=== PATIENT | male | born 1945 | race Caucasian/White ===

== ENCOUNTER 2023-12-09 09:00 | Emergency (ER) | payer MEDICARE, OTHER, SELFPAY ==
[2023-12-09 09:02] VITALS: BP 158/81
--- NOTE | 2023-12-09 09:24 | ED.GENMED ---
History of Present Illness
General
Chief Complaint: Cold/Flu/URI Symptoms
Source: patient
Exam Limitations: none
Time Seen by Provider: 12/09/23 09:18
Travel History
Have you had any contact with someone who has COVID-19?: Unable to Answer
Do you have any symptoms of coronavirus? Fever > 100 degrees, chills, cough, shortness of breath, sore throat, loss of taste or smell, muscle aches, or headache?: Yes
Symptoms:: cough
History of Present Illness
History of Present Illness:
See MDM
Past History
Past History
ED Past Medical History: Asthma and Other (Kidney stone in 2009, chronic renal insufficiency, arrhythmia with AICD implant,)
ED Past Surgical History: Cardiac
Social History
Tobacco: Non-smoker
Alcohol: Occasional
Family History
Family History: CAD
Phy Exam
Physical Exam
Physical Exam:
See MDM
Course
Orders/Labs/Results
Orders:
Orders
12/09/23 09:09
COVID-19 Antigen Urgent
Source: Nasal Swab
Influenza A+B Rapid Molecular Urgent
PAMELA Source: Nasal Swab
Specimen Description:
12/09/23 09:23
Acetaminophen [Tylenol] 1,000 mg PO NOW STA
CR Chest - 2 Views Urgent
Comment:
Reason For Exam: fever and cough
12/09/23 09:25
Acetaminophen [Tylenol] 1,000 mg .ROUTE .STK-MED ONE
Vital Signs
Initial and Last Documented VS:
Initial Vital Signs
Temp Pulse Resp BP Pulse Ox
102.0 F H 73 16 158/81 97
12/09/23 09:02 12/09/23 09:02 12/09/23 09:02 12/09/23 09:02 12/09/23 09:02
Last Documented Vital Signs
Temp Pulse Resp BP Pulse Ox
102.0 F H 73 16 158/81 97
12/09/23 09:02 12/09/23 09:02 12/09/23 09:02 12/09/23 09:02 12/09/23 09:02
MDM/Problems Addressed
Differential Diagnosis Includes:
HPI and MDM Narrative:
78-year-old male presenting with cough and fever. This been ongoing for the past day or so. Patient recently returned from a cruise. He does have a history of well-controlled asthma and denies wheezing
Patient febrile on arrival. He is well-appearing nontoxic. Does have a dry cough. Will obtain COVID and flu testing and chest x-ray. Patient given Tylenol
Physical exam
General: Well appearing and non-toxic
HEENT: protecting airway
Neck: appears supple
CV: No evidence of cyanosis
Resp: No accessory muscle use. Lungs clear
Abd: Non-distended
Extremities: No deformities
Neuro: alert
Psych: Normal affect
Skin: Warm
Problems Addressed including Acute and Chronic Conditions affecting care:
1. Cough and fever
Acuity: acute
Prognosis: stable
Details: Will obtain COVID and flu testing. Will obtain chest x-ray
Updates
Patient found to be influenza positive. Chest x-ray clear. Discussed return precautions
Differential Diagnosis (but not limited to): Pneumonia, COVID, flu, viral syndrome
Testing considered: Blood work
Drug therapy (if applicable): OTC meds, please see d/c instruction regarding Rx drugs
Amount and/or Complexity of Data Reviewed
Clinical info obtained from: Patient
External data reviewed: N/A
Labs I independently reviewed (but not limited to): Influenza positive
Radiology: X-ray independently reviewed: Chest x-ray clear
Pulse Ox: not hypoxic
EKG independently reviewed: N/A
Tube Closing Machine Operator: N/A
Critical Care: N/A
Risk of Complication:
Social Determinants of health: Good social support
Discussed with other providers: N/A
Escalation of Care includes Admit/Obs: After being observed in the Emergency Department, pt stable for discharge.
Occasional wrong word or 'sound a like' substitutions may have occurred due to the inherent limitations of voice recognition software. Read the chart carefully and recognize, using context, where substitutions have occurred.
*Critical Care Note
Total Time (30-74mins, 75-104mins- exclusive of procedures): Not Applicable
ED Attending Note
-
Portions of this chart may have been created with voice recognition software.� Occasional wrong word or��sound alike� substitutions may have occurred due to the inherent limitations of voice recognition software.
Discharge Plan
Departure
Patient Disposition: Home (Routine Discharge)
Date of Disposition: 12/09/23
Time of Disposition: 09:48
Patient with high blood pressure during this ER visit?: Yes
Discharge Problem:
Influenza A
Instructions: Flu, BLOOD PRESSURE
Prescriptions:
No Action
Areds Preservsion
1 tab PO BID
ascorbic acid (vitamin C) [Vitamin C] 1,000 MG tablet
1,000 mg PO DAILY
atorvastatin 20 MG tablet
20 mg PO DAILY
amiodarone [Pacerone] 200 MG tablet
200 mg PO DAILY
metoprolol succinate 100 MG tablet extended release 24 hr
100 mg PO BID
allopurinol 100 MG tablet
200 mg PO BID
cholecalciferol (vitamin D3) [Vitamin D3] 400 UNITS tablet
400 units PO DAILY
finasteride 5 MG tablet
5 mg PO DAILY
omega 1-xxc-cdq-fish oil [Fish Oil] 1 EACH capsule
1 cap PO DAILY
Eliquis 2.5 MG tablet
2.5 mg PO BID
Hold Instructions: Resume on 02/06/22. Don't restart until blood in urine is resolved
Brio Inhaler
100 mg inhalation DAILY
Multivitamin Senior Mens
1 tab PO DAILY
Tumeric
1 cap PO DAILY
albuterol 90 mcg/actuation Aerosol
108 mcg INHALATION PRN PRN (Reason: SOB)
Bactrim
1 tab PO BID
phenazopyridine 200 mg tablet
200 mg PO TID PRN (Reason: urine burning) 3 Days Qty: 10 0RF
oxybutynin chloride 5 mg tablet
5 mg PO TID PRN (Reason: frequent urination) 30 Days Qty: 40 0RF
Activity Restrictions/Additional Instructions:
Please return for any worsening symptoms.
You may return at any time if you have further concerns.
Please follow up with your doctor at the first available appointment, preferably this week.
Thank you for choosing [facility].
Interventions
Interventions:
*Risk Screen - Suicide Last Done: 12/09/23 09:02
*ED COVID-19 Vaccine History Last Done: 12/09/23 09:02
ED- Pulmonary Assessment Last Done: 12/09/23 09:30
Discharge Date and Time
Print Language: HAITIAN
[2023-12-09] MEDS: TYLENOL 1000 MG PO (09:29)
[2023-12-09 09:30] LABS: COVID-19 Antigen Negative (Negative)
== END 2023-12-09 10:05 | disposition home or self-care (01) ==
LOC: EMR 09:00
PROVIDERS: Emergency Medicine; EMERGENCY PHYSICIAN Student in an Organized Health Care Education/Training Program; FAMILY PHYSICIAN Family Medicine
DX: J10.1 Influenza due to other identified influenza virus with other respiratory manifestations (principal); J45.909 Unspecified asthma, uncomplicated
CPT/HCPCS: 99283; 71046; 87502; 87811

== ENCOUNTER 2023-12-12 13:17 | Inpatient (IN) | payer MEDICARE, OTHER, SELFPAY ==
[2023-12-12] VITALS (8 sets, daily range): BP systolic 97–171; BP diastolic 51–74; BMI 28.2
[2023-12-12] MEDS: TYLENOL 1000 MG PO (10:55)
--- NOTE | 2023-12-12 11:04 | ED.GENMED ---
History of Present Illness
General
Chief Complaint: Breathing Problem
Source: patient and spouse
Exam Limitations: none
Time Seen by Provider: 12/12/23 10:51
Nursing documentation reviewed up to this point in time: agreed with
Travel History
Have you had any contact with someone who has COVID-19?: No
Do you have any symptoms of coronavirus? Fever > 100 degrees, chills, cough, shortness of breath, sore throat, loss of taste or smell, muscle aches, or headache?: Yes
Symptoms:: fever
History of Present Illness
History of Present Illness:
78-year-old male with a past medical history of hyperlipidemia, atrial fibrillation, AICD, BPH, asthma who presents to the emergency department for evaluation of worsening shortness of breath and cough in the setting of influenza. Patient reports
that he had cough and fever starting a few days ago; was seen in this emergency room and was diagnosed with influenza A. He was advised regarding supportive care with Tylenol and ensuring good p.o. hydration. Since then fevers have been better
controlled at home but he has noticed worsening shortness of breath and cough. He says shortness of breath is worse with exertion but is constant over the past few days. He says his cough is productive of clear sputum. He has not had any chest
pain. He has had some nausea and decreased appetite and some loose stools. No abdominal pain. He denies any other complaints.
Past History
Past History
ED Past Medical History: Asthma and Other (Kidney stone in 2010, chronic renal insufficiency, arrhythmia with AICD implant,)
ED Past Surgical History: Cardiac
Social History
Tobacco: Non-smoker
Alcohol: Occasional
Family History
Family History: CAD
Review of Systems
Review of Systems
All Other Systems: ROS reviewed and negative except as documented in HPI and ROS
Constitutional: Reports fever, fatigue and chills
EENT: Denies sore throat or runny nose
Respiratory: Reports cough and trouble breathing
Cardiac: Denies chest pain or palpitations
ABD/GI: Reports nausea, diarrhea and anorexia; Denies abdominal pain or vomiting
: Denies flank pain
Musculoskeletal: Denies neck pain or back pain
Neurological: Denies dizzy or headache
Phy Exam
Physical Exam
Physical Exam:
General: Awake, alert; no acute distress
Head: Normocephalic, atraumatic
Eyes: Conjunctiva normal, sclera anicteric
Throat: Airway intact, handling secretions
Neck: Trachea midline, supple without meningismus
Lungs: Patient is tachypneic, low normal pulse ox 91% on room air; frequent coughing; diffuse rhonchi throughout all lung trent
Heart: Regular rate and rhythm, no murmurs, gallops, or rubs
Abd: Soft, non distended, nontender
Neuro: Cranial nerves grossly intact, speech fluid
Skin: no rash
Extremities: No edema in extremities, equal pulses in all extremities
Scores
Heart Failure Risk
Heart Failure Risk Score: Not Applicable
Heart Score for Chest Pain Patients
STEMI patient?: Not applicable
Withdrawal Assessment of Alcohol
Withdrawal Assessment Completed?: Not applicable
Course
Orders/Labs/Results
Orders:
Orders
12/12/23 10:50
Acetaminophen [Tylenol] 1,000 mg .ROUTE .STK-MED ONE
12/12/23 10:51
Ibuprofen [Motrin] 600 mg .ROUTE .STK-MED ONE
12/12/23 10:53
Acetaminophen [Tylenol] 1,000 mg PO NOW STA
CR Chest - 2 Views Urgent
Comment:
Reason For Exam: cough, fever
12/12/23 10:59
Complete Blood Count/With Diff Urgent
Comprehensive Metabolic Panel Urgent
Lactate Level [Lactic Acid] Urgent
Blood Culture Q30M
PAMELA Source: Blood/Venous
Specimen Description:
Blood Culture Q30M
PAMELA Source: Blood/Venous
Specimen Description:
12/12/23 12:06
CefTRIAXone [Rocephin] 1,000 mg IV NOW STA
Doxycycline 100 mg IVPB NOW Doxycycline Hyclate [Vibramycin] 100 mg 0.9% Sodium Chloride 250 ml [Nss] 250 ml IV NOW
Abnormal Lab Results
12/12/23
10:59
WBC 2.9 L 10^3/uL
(4.8-10.8)
RBC 4.07 L 10^6/uL
(4.70-6.10)
MCV 96.6 H fL
(80.0-94.0)
MCH 34.4 H pg
(27.0-31.0)
Plt Count 94 L 10^3/uL
(130-400)
MPV 10.9 H fL
(7.4-10.4)
Absolute Lymphs (auto) 0.3 L 10^3/uL
(1.2-3.4)
Neutrophils % 78.1 H %
(42.2-75.2)
Lymphocytes % 9.4 L %
(20.5-51.1)
Monocytes % 11.5 H %
(1.7-9.3)
Sodium 134 L mmol/L
(135-145)
BUN 23 H mg/dl
(9-20)
Glucose 121 H mg/dl
(70-99)
Total Bilirubin 1.8 H mg/dl
(0.2-1.3)
AST 115 H U/L
(17-59)
ALT 109 H U/L
(0-50)
Alkaline Phosphatase 211 H U/L
(38-126)
Total Protein 6.0 L g/dl
(6.3-8.2)
12/12/23 10:59
12/12/23 10:59
Vital Signs
Initial and Last Documented VS:
Initial Vital Signs
Temp Pulse Resp BP Pulse Ox
39.6 C H 72 24 171/74 91
12/12/23 10:40 12/12/23 10:40 12/12/23 10:40 12/12/23 10:40 12/12/23 10:40
Last Documented Vital Signs
Temp Pulse Resp BP Pulse Ox
39.6 C H 72 24 123/66 93
12/12/23 10:40 12/12/23 11:00 12/12/23 10:40 12/12/23 10:57 12/12/23 11:00
MDM/Problems Addressed
Differential Diagnosis Includes:
Bronchitis, asthma exacerbation, pneumonia, viral syndrome
MDM/Problems Addressed:
78-year-old male with history as documented, recently diagnosed influenza presents with worsening shortness of breath and cough, fever. Febrile to 103.2 �F here. Tachypneic and low normal pulse ox 91% on room air. Hypertensive. Normal heart
rate. Physical exam as above�notably hacking cough with diffuse rhonchorous breath sounds. Suspect likely an acute viral bronchitis although pneumonia also consideration. Will plan to check labs including a CBC and CMP, send lactate and blood
cultures given multiple SIRS criteria and concern for lung infection. Will check chest x-ray. Will treat with Tylenol for fever. Will monitor closely reassess after the above. Consider steroids if no pneumonia on chest x-ray.
Labs reviewed: CBC shows leukopenia with a WBC of 2.9; CMP shows abnormal LFTs likely in the setting of influenza/viral infection. Chest x-ray shows right-sided pneumonia which is new�concern for sepsis related to pneumonia. Lactate is less than
2. Will plan to treat with antibiotics and admit for continued management. Case discussed with hospitalist for admission.
Chronic conditions affecting care:
Asthma
Acute Exacerbation and/or Progression of Chronic Illness:
Acutely hypertensive
Acute Exacerbation and/or Progression of Chronic Illness: HTN
*Radiology
Radiology exam reviewed: preliminary read by ED provider and radiology read reviewed
*Pulse Oximetry
Patient hypoxic: no
*Critical Care Note
Total Time (30-74mins, 75-104mins- exclusive of procedures): Not Applicable
Data Reviewed
Review of Other/Old Records Reveals: Labs and Records
Source: patient and records
Patient Management
Discussion with other providers: Hospitalist (Discussed with hospitalist)
Escalation/DeEscalation of care consider admission/obs:
Admission indicated
ED Attending Note
-
Portions of this chart may have been created with voice recognition software.� Occasional wrong word or��sound alike� substitutions may have occurred due to the inherent limitations of voice recognition software.
Discharge Plan
Departure
Patient Disposition: Admit
Date of Disposition: 12/12/23
Time of Disposition: 12:08
Admit to doctor: Ayala
Presentation/result/management discussed w/ accepting MD/DO: Hospitalist
Discharge Problem:
Pneumonia, Influenza A, Sepsis
Prescriptions:
No Action
Areds Preservsion
1 tab PO BID
ascorbic acid (vitamin C) [Vitamin C] 1,000 MG tablet
1,000 mg PO DAILY
atorvastatin 20 MG tablet
20 mg PO DAILY
amiodarone [Pacerone] 200 MG tablet
200 mg PO DAILY
metoprolol succinate 100 MG tablet extended release 24 hr
100 mg PO BID
allopurinol 100 MG tablet
200 mg PO BID
cholecalciferol (vitamin D3) [Vitamin D3] 400 UNITS tablet
400 units PO DAILY
finasteride 5 MG tablet
5 mg PO DAILY
omega 7-jzv-qzo-fish oil [Fish Oil] 1 EACH capsule
1 cap PO DAILY
Eliquis 2.5 MG tablet
2.5 mg PO BID
Hold Instructions: Resume on 02/06/22. Don't restart until blood in urine is resolved
Brio Inhaler
100 mg inhalation DAILY
Multivitamin Senior Mens
1 tab PO DAILY
Tumeric
1 cap PO DAILY
albuterol 90 mcg/actuation Aerosol
108 mcg INHALATION PRN PRN (Reason: SOB)
Bactrim
1 tab PO BID
phenazopyridine 200 mg tablet
200 mg PO TID PRN (Reason: urine burning) 3 Days Qty: 10 0RF
oxybutynin chloride 5 mg tablet
5 mg PO TID PRN (Reason: frequent urination) 30 Days Qty: 40 0RF
Referrals:
Heriberto Breen MD [Family Provider] -
Interventions
Interventions:
*Risk Screen - Suicide Last Done: 12/12/23 10:56
*General Assessment Last Done: 12/12/23 10:56
*Neglect/Abuse Screening Last Done: 12/12/23 10:56
*ED COVID-19 Vaccine History Last Done: 12/12/23 10:40
ED- Cardiac Assessment Last Done: 12/12/23 11:01
ED- Pulmonary Assessment Last Done: 12/12/23 10:56
Discharge Date and Time
Print Language: ITALIAN
[2023-12-12 11:11] LABS: % Basophils 0.7 % (0-2); % Immature Granulocytes 0.3 % (0-0.5); % Lymphocytes 9.4 % (20.5-51.1); % Monocytes 11.5 % (1.7-9.3); % Neutrophils 78.1 % (42.2-75.2); Absolute Lymphocytes 0.3 10^3/uL (1.2-3.4); Absolute Monocytes 0.3 10^3/uL (0.1-0.6); Absolute Neutrophils 2.2 10^3/uL (1.4-6.5); Hematocrit 39.3 % (39.0-52.0); Mean Corp Hgb Conc. 35.6 g/dL (33.0-37.0); Mean Corpuscular Hgb 34.4 pg (27.0-31.0); Mean Corpuscular Volume 96.6 fL (80.0-94.0); Mean Platelet Volume 10.9 fL (7.4-10.4); Nucleated Red Blood Cells % 0 % (-); Platelet Count 94 10^3/uL (130-400); Red Blood Cell Count 4.07 10^6/uL (4.70-6.10); Red Cell Dist. Width 13.6 % (11.5-14.5); White Blood Cell Count 2.9 10^3/uL (4.8-10.8)
[2023-12-12 11:24] LABS: Lactic Acid 1.7 mmol/L (0.7-2.0)
[2023-12-12 11:25] LABS: ALT (SGPT) 109 U/L (0-50); AST (SGOT) 115 U/L (17-59); Albumin 3.6 g/dl (3.5-5.0); Alkaline Phosphatase 211 U/L (38-126); Blood Urea Nitrogen 23 mg/dl (9-20); Calcium 8.5 mg/dl (8.4-10.2); Carbon Dioxide 22 mmol/L (22-30); Chloride 101 mmol/L (98-107); Glucose 121 mg/dl (70-99); Sodium 134 mmol/L (135-145); Total Bilirubin 1.8 mg/dl (0.2-1.3); eGFR 56.93
[2023-12-12] MEDS: ROCEPHIN 1000 MG IV (12:17)
[2023-12-12] MEDS: NSS 1000 IV ×2 (12:41→14:00)
[2023-12-12] MEDS: VIBRAMYCIN 260 MG IV (12:43)
--- NOTE | 2023-12-12 13:00 | HPS.HSE ---
Family Physician
-
Family Physician: Heriberto Breen
Chief Complaint
-
Cough, Shortness of Breath and Fever
History of Present Illness
This is a 78 year old male with past medical history of asthma, hypertension, and who presents with dyspnea, cough, wheezing, chills, and fevers since he came back from a cruise 6 days ago. He presented to the emergency department three days ago
and was diagnosed with influenza type A and discharge home from the emergency department. His symptoms continued to worsen with increasing shortness of breath, productive cough and persistent fever, prompting him to present to the emergency
department today. Patient states he has experienced mild improvement with over the counter Tylenol and use of his albuterol inhaler to help with his wheezing. Patient reports dyspnea is with only mild exertion. Patient reports cough is productive of
thick yellow sputum. He reports an episode of nausea after a meal yesterday but reports this has resolved. Patient denies abdominal pain or chest pain.
Medical History
Past Medical History
Past Medical History: Reports Other
Additional Past Medical History:
Cardiomyopathy
Paroxysmal Atrial Fibrillation
Ventricular Tachycardia
Essential Hypertension
Hyperlipidemia
CKD Stage IIIA
Asthma
BPH
Nephrolithiasis
AYO
Gout
DVT
Past Surgical History: Reports Other
Additional Past Surgical History:
TURP
Defibrillator
Social History
Tobacco: Non-smoker
Alcohol: Daily (One dirnk nightly)
Family History
Family History: Not pertinent
Allergies / Home Medications
Allergies reflects when Allergies were last updated in [facility].
Home Medications with original date entered in [facility]
Allergy/Medication List:
Allergies
Allergy/AdvReac Type Severity Reaction Status Date / Time
No Known Allergies Allergy Verified 02/02/22 12:51
Home Medications
amiodarone 200 mg tablet (Pacerone) 200 mg PO DAILY 01/10/22
ascorbic acid (vitamin C) 1,000 mg tablet (Vitamin C) 1,000 mg PO DAILY 01/10/22
atorvastatin 20 mg tablet 20 mg PO DAILY 01/10/22
cholecalciferol (vitamin D3) 10 mcg (400 unit) tablet (Vitamin D3) 400 units PO DAILY 01/10/22
metoprolol succinate 100 mg tablet,extended release 24 hr 50 mg PO DAILY 01/10/22
omega 5-nbh-pxy-fish oil 300 mg-1,000 mg capsule (Fish Oil) 1 cap PO DAILY 01/10/22
Lactobacillus rhamnosus GG 10 billion cell capsule (Culturelle) 1 cap PO DAILY 12/12/23
allopurinol 300 mg tablet 300 mg PO DAILY 12/12/23
apixaban 5 mg tablet (Eliquis) 5 mg PO BID 12/12/23
empagliflozin 10 mg tablet (Jardiance) 10 mg PO DAILY 12/12/23
fluticasone furoate 100 mcg-vilanterol 25 mcg/dose inhalation powder (Breo Ellipta) 1 inh inhalation R DAILY 12/12/23
glucosamine sulf dipot chlr,msm,chond 550 mg-C 30 mg-rudy 1 mg capsule (Glucosamine Chondroitin) 1 cap PO DAILY 12/12/23
therapeutic multivitamin 1 tab PO DAILY 12/12/23
turmeric 400 mg capsule 400 mg PO DAILY 12/12/23
vitamins A,C,U-zaza-mljsov 2,148 mcg-113 mg-45 mg-17.4 mg tablet (PreserVision AREDS) 1 tab PO DAILY 12/12/23
Review of Systems
-
A 12 point ROS was completed and negative except as noted: Yes
Constitutional: Reports Fever
Respiratory: Reports Cough and Trouble Breathing
Cardiac: Denies Chest Pain or Palpitations
Abdomen/GI: Reports Nausea; Denies Abdominal Pain, Vomiting or Diarrhea
Physical Exam
Vital Signs
Vital Signs
Temp Pulse Resp BP Pulse Ox
99.2 F 72 24 123/66 93
12/12/23 12:45 12/12/23 11:00 12/12/23 10:40 12/12/23 10:57 12/12/23 11:00
Physical Exam
General: Comfortable and Conversant
HEENT: Anicteric and Moist mucous membranes
Respiratory: Wheezes (Anteriorly) and Other (Coarse breath sounds throughout with frequent cough)
Cardiac: S1/S2 and Regular Rhythm
GI: Soft and Non Tender
Rectal: Deferred by Provider
Musculoskeletal: No Clubbing, No Cyanosis and No Edema
Skin: Warm and Dry
Neuro: Awake, Alert, Oriented and Nonfocal/grossly intact
Psych: Calm
Laboratory Results
-
12/12/23 10:59
12/12/23 10:59
Laboratory Results
Lactic Acid 1.7 mmol/L (0.7-2.0) 12/12/23 10:59
Total Bilirubin 1.8 mg/dl (0.2-1.3) H 12/12/23 10:59
AST 115 U/L (17-59) H 12/12/23 10:59
ALT 109 U/L (0-50) H 12/12/23 10:59
Alkaline Phosphatase 211 U/L (38-126) H 12/12/23 10:59
Data Reviewed
-
Lab Data: Labs Reviewed by me
Impression/Plan
-
Sepsis secondary to Pneumonia possible viral secondary to Influenza Type A +/- superimposed bacterial compoenent
-Continue Rocephin and Doxycycline
-Start Tamiflu
-Check Sputum Culture
-Check urine strep and legionella antigen
-Await blood cultures
Acute Asthma Exacerbation
-Continue Pulmicort Neb in place of Breo
-Continue Albuterol Neb QID and PRN
Elevated LFTs likely related to Influenza A
-Hold statin
-Continue to trend
Paroxysmal Atrial Fibrillation
-Continue Eliquis for anticoagulation
-Continue amiodarone for rate/rhythm control
-Hold Metoprolol due to mild hypotension in ED
CKD Stage IIIA
-Creatinine at baseline
-Continue Jardiance
Hyperlipidemia
-Hold statin due to elevated LFTs
BPH s/p TURP
-Continue finasteride
Gout
-Continue allopurinol
Hx Ventricular Tachycardia s/p Defibrillator
Hx DVT
DVT proph: Eliquis
Code Status: Full Code
--- NOTE | 2023-12-12 13:47 | W.PN.UPDATE ---
Update Note
Progress Note Update
I saw and examined the patient.
The CEMENT DESPATCH OPERATOR or PA's note was reviewed and I agree with the note.
Comment: 78-year-old male presents with a chief complaint of shortness of breath and cough.
101/62, 60, 14, 99.2 �F, 96% RA
NAD, awake and alert
RRR, normal S1/S2
B/L wheezes/rhonchi
CN2-12 intact
CXR:
1. Findings suggestive of multifocal pneumonia within the right middle and right lower lobes, new compared to recent prior chest x-ray.
2. No significant pleural effusion on either side.
Lab Results
12/12/23
10:59
WBC 2.9 L
RBC 4.07 L
Hgb 14.0
Hct 39.3
MCV 96.6 H
MCH 34.4 H
MCHC 35.6
RDW 13.6
Plt Count 94 L
MPV 10.9 H
Abs Immat Gran (auto) 0.0
Absolute Neuts (auto) 2.2
Absolute Lymphs (auto) 0.3 L
Absolute Monos (auto) 0.3
Absolute Eos (auto) 0.0
Absolute Basos (auto) 0.0
CBC Comment
Immature Gran % 0.3
Neutrophils % 78.1 H
Lymphocytes % 9.4 L
Monocytes % 11.5 H
Eosinophils % 0.0
Basophils % 0.7
Nucleated RBC % 0
Sodium 134 L
Potassium 4.0
Chloride 101
Carbon Dioxide 22
BUN 23 H
Creatinine 1.3
eGFR 56.93
Glucose 121 H
Lactic Acid 1.7
Calcium 8.5
Total Bilirubin 1.8 H
AST 115 H
ALT 109 H
Alkaline Phosphatase 211 H
Total Protein 6.0 L
Albumin 3.6
Sepsis due to acute R-sided multifocal PNA:
-recent influenza POS 12/09/23, was not given Tamiflu at that time
-cont with Rocephin/Doxy
-start Tamiflu
-check procal
-IVFs
-elevated LFTs likely due to sepsis, trend
[2023-12-12] MEDS: TAMIFLU 75 MG PO (14:12)
[2023-12-12 14:19] LABS: Procalcitonin 1.49 ng/ml (0.0-0.25)
[2023-12-12] MEDS: VENTOLIN NEBULES 2.5 MG INH ×2 (17:26→19:51)
[2023-12-12] MEDS: PULMICORT 0.5 MG INH (19:50)
[2023-12-12] MEDS: VIBRAMYCIN 100 MG PO (20:27)
[2023-12-12] MEDS: TYLENOL 650 MG PO (20:27)
[2023-12-12] MEDS: ELIQUIS 5 MG PO (20:27)
[2023-12-13] MEDS: NSS 1000 IV ×3 (00:26→22:54)
[2023-12-13] MEDS: TYLENOL 650 MG PO (00:27)
[2023-12-13] MEDS: ANESTHETIC LOZENGE 1 LOZENGE PO ×4 (00:27→20:13)
[2023-12-13 03:38] VITALS: BP 107/59
[2023-12-13 05:31] VITALS: BMI 28.1
[2023-12-13 07:10] VITALS: BP 112/61
[2023-12-13] MEDS: PULMICORT 0.5 MG INH ×2 (07:11→20:14)
[2023-12-13] MEDS: VENTOLIN NEBULES 2.5 MG INH ×4 (07:11→20:14)
--- NOTE | 2023-12-13 08:05 | W.PN.HOSP.TC ---
Today's Communication/Plan
-
see bold
Assessment / Plan
Assessment / Plan
Gen: NAD, AAOx3.
Eyes: EOMI, PERRLA, no scleral icterus.
Neck: supple.
CV: RRR, +S1/S2, no m/r/g.
Resp: Bilateral wheezes and rhonchi.
Abd: +BS, soft, NT, ND
Skin: No rashes.
Neuro: CN 2-12 intact, non-focal.
Psych: Normal mood and affect.
CXR:
1. Findings suggestive of multifocal pneumonia within the right middle and right lower lobes, new compared to recent prior chest x-ray.
2. No significant pleural effusion on either side.
Sepsis and acute asthma exacerbation due to acute R-sided multifocal PNA:
-recent influenza POS 12/09/23, was not given Tamiflu at that time
-procal 1.49
-cont with Rocephin/Doxy/Tamiflu
-decadron 4mg IV x 1 now, c/s pulm
-cont IVFs
-elevated LFTs likely due to sepsis, improving
-DEEPA, POA, due to sepsis, resolved with IVFs
Other problems:
Paroxysmal Atrial Fibrillation: Cont Eliquis/Amio. BB on hold.
CKD3a
Hyperlipidemia: Holding statin due to elevated LFTs
BPH s/p TURP: Continue finasteride
Gout: Continue allopurinol
h/o Ventricular Tachycardia s/p Defibrillator
h/o DVT
FULL/Eliquis
Anticipated Discharge: 24 - 48 hours
Subjective/Interval History
-
Date of Service: December 13, 2023
Still with shortness of breath. Cough is improving.
Objective Data
-
Labs:
Laboratory Results
12/13/23
06:00
WBC Pending
Hgb Pending
Hct Pending
Plt Count Pending
Sodium Pending
Potassium Pending
Chloride Pending
Carbon Dioxide Pending
BUN Pending
Creatinine Pending
Glucose Pending
Calcium Pending
Total Bilirubin Pending
AST Pending
ALT Pending
Alkaline Phosphatase Pending
Vital Signs:
Vital Signs
Temp Pulse Resp BP Pulse Ox
98.2 F 84 22 107/59 96
12/13/23 03:38 12/13/23 07:15 12/13/23 07:15 12/13/23 03:38 12/13/23 07:15
I&O
12/12/23 12/13/23 12/14/23
06:59 06:59 06:59
Intake Total 1919
Balance 1919
[2023-12-13] MEDS: TAMIFLU 30 MG PO (08:32)
[2023-12-13] MEDS: PACERONE 200 MG PO (08:32)
[2023-12-13] MEDS: VIBRAMYCIN 100 MG PO ×2 (08:32→20:13)
[2023-12-13] MEDS: ELIQUIS 5 MG PO ×2 (08:33→20:12)
[2023-12-13] MEDS: ZYLOPRIM 300 MG PO (08:34)
[2023-12-13] MEDS: VISBIOME 1 CAP PO (08:34)
[2023-12-13] MEDS: JARDIANCE 10 MG PO (08:34)
[2023-12-13 09:24] LABS: Hematocrit 37.1 % (39.0-52.0); Hemoglobin 12.6 g/dL (13.0-18.0); Mean Corpuscular Hgb 34.1 pg (27.0-31.0); Mean Corpuscular Volume 100.5 fL (80.0-94.0); Mean Platelet Volume 11.4 fL (7.4-10.4); Platelet Count 80 10^3/uL (130-400); Red Blood Cell Count 3.69 10^6/uL (4.70-6.10); Red Cell Dist. Width 13.8 % (11.5-14.5); White Blood Cell Count 4.9 10^3/uL (4.8-10.8)
[2023-12-13 10:31] LABS: ALT (SGPT) 80 U/L (0-50); AST (SGOT) 83 U/L (17-59); Alkaline Phosphatase 194 U/L (38-126); Blood Urea Nitrogen 17 mg/dl (9-20); Calcium 8.1 mg/dl (8.4-10.2); Carbon Dioxide 22 mmol/L (22-30); Chloride 107 mmol/L (98-107); Estimated Creatinine Clearance 70 ml/min; Glucose 88 mg/dl (70-99); Magnesium 2.2 mg/dl (1.6-2.3); Potassium 3.5 mmol/L (3.5-5.1); Sodium 138 mmol/L (135-145); Total Bilirubin 1.5 mg/dl (0.2-1.3); Total Protein 5.4 g/dl (6.3-8.2); eGFR > 60.00
--- NOTE | 2023-12-13 10:38 | CON.PUL ---
Consultation
Consultation Request
Date/Time Consultation Requested: 12/13/2023-10:45 AM
Date/Time Consultation Performed: 12/13/2023-11:30 AM
Requesting Provider: Dr. Lozano
Performing Provider: Dr. Dai
Reason for Consultation: Asthma exacerbation
Medical History
-
Chief Complaint: Shortness of breath
History of Present Illness:
78-year-old male with a history of asthma, hypertension who presented with dyspnea, coughing, wheezing fevers and chills and pulmonary was consulted for asthma exacerbation 12/13/2023.He states that he was originally diagnosed with a bronchitis
continued to get worse with increasing shortness of breath, chest congestion, wheezing, productive cough and dyspnea on exertion. He feels improved but still has some chest congestion, wheezing and shortness of breath with exertion. He reports
obtaining a CPAP in [place] and using it until this respiratory tract infection. He reports having compliance check that was appropriate. He reports his AHI is less than 3. On most nights.
Past Medical History
Past Medical History: None (Hypertension. Hyperlipidemia. Asthma. AYO. PAF. Cardiomyopathy. Ventricular tachycardia. Chronic kidney disease stage IIIa. BPH. Nephrolithiasis. Gout. History of DVT. TURP. Defibrillator.)
Social History
Tobacco: Non-smoker
Alcohol: Daily (1 drink)
Drug: None
Living: With Family
Occupational Exposures: No known asbestos exposure
Environmental Exposures: No known tuberculosis exposure
Family History
Family History: Reviewed & Not Pertinent and Other (Father-cirrhosis due to alcohol, mother-diabetes and CAD)
Allergies / Home Medications
Allergies
Allergy/AdvReac Type Severity Reaction Status Date / Time
No Known Allergies Allergy Verified 02/02/22 12:51
Home Medications
�Medication �Instructions �Recorded �Confirmed �Last Taken �Type
amiodarone 200 mg tablet (Pacerone) 200 mg PO DAILY 01/10/22 12/12/23 12/11/23 History
ascorbic acid (vitamin C) 1,000 mg 1,000 mg PO DAILY 01/10/22 12/12/23 12/11/23 History
tablet (Vitamin C)
atorvastatin 20 mg tablet 20 mg PO DAILY 01/10/22 12/12/23 12/11/23 History
cholecalciferol (vitamin D3) 10 400 units PO DAILY 01/10/22 12/12/23 12/11/23 History
mcg (400 unit) tablet (Vitamin D3)
metoprolol succinate 100 mg 50 mg PO DAILY 01/10/22 12/12/23 12/11/23 History
tablet,extended release 24 hr
omega 3-hrs-fqt-fish oil 300 1 cap PO DAILY 01/10/22 12/12/23 12/11/23 History
mg-1,000 mg capsule (Fish Oil)
Lactobacillus rhamnosus GG 10 1 cap PO DAILY 12/12/23 12/12/23 12/11/23 History
billion cell capsule (Culturelle)
allopurinol 300 mg tablet 300 mg PO DAILY 12/12/23 12/12/23 12/11/23 History
apixaban 5 mg tablet (Eliquis) 5 mg PO BID 12/12/23 12/12/23 12/11/23 History
empagliflozin 10 mg tablet 10 mg PO DAILY 12/12/23 12/12/23 12/11/23 History
(Jardiance)
fluticasone furoate 100 1 inh inhalation R DAILY 12/12/23 12/12/23 12/11/23 History
mcg-vilanterol 25 mcg/dose
inhalation powder (Breo Ellipta)
glucosamine sulf dipot 1 cap PO DAILY 12/12/23 12/12/23 12/11/23 History
chlr,msm,chond 550 mg-C 30 mg-rudy
1 mg capsule (Glucosamine
Chondroitin)
therapeutic multivitamin 1 tab PO DAILY 12/12/23 12/12/23 12/11/23 History
turmeric 400 mg capsule 400 mg PO DAILY 12/12/23 12/12/23 12/11/23 History
vitamins A,C,O-kkyn-varpoj 2,148 1 tab PO DAILY 12/12/23 12/12/23 12/11/23 History
mcg-113 mg-45 mg-17.4 mg tablet
(PreserVision AREDS)
Review of Systems
-
Unable to Obtain full review of systems at this time due to: Other (Per HPI)
Vitals / Labs / Diagnostic Testing
Vital Signs
Temp Pulse Resp BP Pulse Ox
97.1 F 61 22 112/61 96
12/13/23 07:10 12/13/23 08:32 12/13/23 07:15 12/13/23 08:32 12/13/23 07:15
Lab Data
12/13/23 09:00
12/13/23 09:00
Microbiology
12/12/23 14:13 Sputum Gram Stain - Preliminary
Diagnostic Testing:
Physical Exam
-
Exam:
Well-nourished and well-developed in no apparent distress
HEENT-atraumatic, normocephalic
Neck-supple, no JVD, no bruit
Heart-regular rate and rhythm-no murmurs, rubs or gallops
Chest with diminished breath sounds, prolonged expiratory time and expiratory wheezes
Abdomen-soft, nontender, nondistended, no hepatosplenomegaly
Extremities-no cyanosis, clubbing, edema and good peripheral pulses
Integument-intact, no rashes, lesions or ecchymosis
Neurology-alert and oriented, nonfocal motor and sensory exam
Assessment
-
78-year-old male with a history of asthma, hypertension who presented with dyspnea, coughing, wheezing fevers and chills and pulmonary was consulted for asthma exacerbation 12/13/2023.
Asthma-mild intermittent now with acute exacerbation
Pneumonia-multifocal community-acquired
Influenza-+12/09/23
Elevated liver functions
Elevated procalcitonin 1.49
Ganwki-gsowhbloiw-lqwpitfkhu 12.6
Leukopenia-WBC 2.9
Conditions present prior to admission:
Hypertension.
Hyperlipidemia.
Asthma-mild intermittent maintained on Breo 100 and albuterol as needed
AYO-maintained on oral appliance.
PAF.
Chronic amiodarone 200 mg daily
Cardiomyopathy.
Ventricular tachycardia.
Chronic kidney disease stage IIIa.
BPH.
Nephrolithiasis.
Gout.
History of DVT.
Cataract
TURP.
Defibrillator-2012 and 2020
Left knee arthroscopy 1979
Bilateral cataract surgery with lens implants
Plan
Respiratory decompensation due to asthma exacerbation and underlying multifocal pneumonia and influenza
Supplemental oxygen
Mucolytic's
Decadron initiate
Nebulizers-currently on albuterol and budesonide
Patient is on Breo 100 as an outpatient
Incentive spirometry
Flutter
Vest therapy if needed
Check cultures
Influenza a positive-12/09/23
Tamiflu
Empiric antibiotics-doxycycline and ceftriaxone initiated
Follow radiographically
Monitor leukopenia
Follow hemoglobin
Transfuse as needed
Follow-up liver functions
DVT prophylaxis-on Eliquis
Nutrition
Early mobilization
He was wearing an oral device and multiple sleep studies showed it was ineffective for his obstructive sleep apnea-he went to [place] to see a sleep specialist and obtained a CPAP machine that he was using and reportedly had a compliance check that
was appropriate. He has an tristan on his phone and reports and AHI usually less than 3.
Patient followed by pulmonary/sleep specialist as an outpatient-saw Aminta Hamlin NP 05/14/2023 and was to see patient again 05/15/2024-originally saw Dr. Rosalva Raymond 12/04/2022-will ask for 2 weeks follow-up after discharge
Diagnostic data:
Chest x-ray 12/09/2023-NAD
Chest x-ray 12/12/2023-multifocal pneumonia right middle lobe and right lower lobe
PSG 2011-AHI 14, desaturation katrina 83%
Split study with mandibular advancement device 08/2021-baseline AHI 29 and with device AHI 24 with desaturation katrina 88%
HST with dental device 12/2022-AHI-24 desaturation katrina 74%
HST with new oral device 04/2023-AHI-36, desaturation katrina 74%, 53 minutes spent less than 88% saturation
Data Reviewed
-
PFT: Report reviewed by me
EKG: Report reviewed by me
Radiology: Image personally visualized and interpreted and Report reviewed by me
Medical Tests (Nuc Med, Echo etc): Report reviewed by me
Labs: Labs reviewed by me
Old Records: Reviewed
Total Time Spent with Patient (in minutes): 65
[2023-12-13 11:00] VITALS: BP 118/54
[2023-12-13] MEDS: DECADRON 4 MG IV ×2 (12:36→17:24)
[2023-12-13] MEDS: ROCEPHIN 1000 MG IV (12:36)
[2023-12-13] MEDS: STERILE WATER FOR INJECTION 10 ML IV (12:36)
--- NOTE | 2023-12-13 14:06 | CM ---
Medical records reviewed. Patient lives with his significant other in a 2 story home, [employer] was independent, drove, no DME or in-home services. Patient has defibrillator since 2013. Pharmacy is [facility] in [place], PCP is Dr. Louis
Blore. Anticipate no needs at discharge.
[2023-12-13 15:10] VITALS: BP 122/66
[2023-12-13] MEDS: NSS IV (17:18)
[2023-12-13 19:19] VITALS: BP 127/60
[2023-12-13] MEDS: TAMIFLU 75 MG PO (20:13)
[2023-12-13 23:07] VITALS: BP 130/73
[2023-12-13 23:17] LABS: Glucose - Point of Care 135 mg/dl (70-99)
[2023-12-13] MEDS: REFRESH EYE DROPS (PF) 1 DROPS OPHTH (23:35)
[2023-12-13] MEDS: ROBITUSSIN DM 10 ML PO (23:35)
--- NOTE | 2023-12-13 23:45 | PTCARENOTE ---
Patient c/o seeing 'white spots' when he closes his eyes; pt states that it started today and he is concerned that it is a side effect of a medication; Lionel SAGASTUME notified; orders obtained for Refresh eye drops PRN; See MAR.
[2023-12-14] MEDS: DECADRON 4 MG IV ×3 (02:27→17:31)
[2023-12-14 03:20] VITALS: BP 149/88
[2023-12-14 06:00] VITALS: BMI 28.2
[2023-12-14] MEDS: ROBITUSSIN DM 10 ML PO ×2 (06:21→17:32)
[2023-12-14] MEDS: ANESTHETIC LOZENGE 1 LOZENGE PO ×2 (06:21→19:50)
[2023-12-14 06:27] LABS: Hematocrit 34.9 % (39.0-52.0); Hemoglobin 12.3 g/dL (13.0-18.0); Mean Corp Hgb Conc. 35.2 g/dL (33.0-37.0); Mean Corpuscular Hgb 34.1 pg (27.0-31.0); Mean Corpuscular Volume 96.7 fL (80.0-94.0); Mean Platelet Volume 11.8 fL (7.4-10.4); Platelet Count 96 10^3/uL (130-400); Red Blood Cell Count 3.61 10^6/uL (4.70-6.10); Red Cell Dist. Width 13.7 % (11.5-14.5); White Blood Cell Count 3.3 10^3/uL (4.8-10.8)
[2023-12-14 06:53] LABS: ALT (SGPT) 93 U/L (0-50); AST (SGOT) 107 U/L (17-59); Albumin 2.9 g/dl (3.5-5.0); Alkaline Phosphatase 241 U/L (38-126); Blood Urea Nitrogen 19 mg/dl (9-20); Calcium 8.5 mg/dl (8.4-10.2); Carbon Dioxide 17 mmol/L (22-30); Chloride 112 mmol/L (98-107); Estimated Creatinine Clearance 70 ml/min; Glucose 129 mg/dl (70-99); Potassium 3.9 mmol/L (3.5-5.1); Sodium 138 mmol/L (135-145); Total Bilirubin 1.2 mg/dl (0.2-1.3); Total Protein 5.3 g/dl (6.3-8.2); eGFR > 60.00
[2023-12-14 07:00] VITALS: BP 127/64
[2023-12-14] MEDS: PULMICORT 0.5 MG INH ×2 (07:14→17:48)
[2023-12-14] MEDS: VENTOLIN NEBULES 2.5 MG INH ×4 (07:14→17:48)
--- NOTE | 2023-12-14 08:11 | W.PN.HOSP.TC ---
Today's Communication/Plan
-
see bold
Assessment / Plan
Assessment / Plan
Gen: remains NAD, AAOx3.
Eyes: EOMI, PERRLA, no scleral icterus.
Neck: supple.
CV: remains RRR, +S1/S2, no m/r/g.
Resp: minimal bilateral wheezes and rhonchi (greatly improved from yesterday).
Abd: +BS, soft, NT, ND
Skin: No rashes.
Neuro: CN 2-12 intact, non-focal.
Psych: Normal mood and affect.
CXR:
1. Findings suggestive of multifocal pneumonia within the right middle and right lower lobes, new compared to recent prior chest x-ray.
2. No significant pleural effusion on either side.
Sepsis and acute asthma exacerbation due to acute R-sided multifocal PNA:
-recent influenza POS 12/09/23, was not given Tamiflu at that time
-procal 1.49
-cont with Rocephin/Doxy/Tamiflu/Decadron
-pulm following
-cont IVFs (but change to NaHCO3 with non-AG met acidosis)
-elevated LFTs likely due to sepsis. Bilirubin now normal. Transaminases remain minimally elevated.
-DEEPA, POA, due to sepsis, resolved with IVFs
Other problems:
Thrombocytopenia, likely due to infection
Paroxysmal Atrial Fibrillation: Cont Eliquis/Amio. Restart BB.
CKD3a
Hyperlipidemia: Holding statin due to elevated LFTs
BPH s/p TURP: Continue finasteride
Gout: Continue allopurinol
h/o Ventricular Tachycardia s/p Defibrillator
h/o DVT
Discussed with Dr. Dai.
FULL/Eliquis
Anticipated Discharge: Within 24 hours
Subjective/Interval History
-
Date of Service: December 14, 2023
Pt states he feels significantly better.
Objective Data
-
Labs:
Laboratory Results
12/14/23
05:29
WBC 3.3 L
Hgb 12.3 L
Hct 34.9 L
Plt Count 96 L
Sodium 138
Potassium 3.9
Chloride 112 H
Carbon Dioxide 17 L
BUN 19
Creatinine 0.9
Glucose 129 H
Calcium 8.5
Total Bilirubin 1.2
AST 107 H
ALT 93 H
Alkaline Phosphatase 241 H
Vital Signs:
Vital Signs
Temp Pulse Resp BP Pulse Ox
97.7 F 75 14 149/88 96
12/14/23 03:20 12/14/23 07:18 12/14/23 07:18 12/14/23 03:20 12/14/23 07:18
I&O
12/13/23 12/14/23 12/15/23
06:59 06:59 06:59
Intake Total 1919
Balance 1919
[2023-12-14] MEDS: PACERONE 200 MG PO (09:29)
[2023-12-14] MEDS: ZYLOPRIM 300 MG PO (09:30)
[2023-12-14] MEDS: VISBIOME 1 CAP PO (09:30)
[2023-12-14] MEDS: JARDIANCE 10 MG PO (09:30)
[2023-12-14] MEDS: ELIQUIS 5 MG PO ×2 (09:30→19:50)
[2023-12-14] MEDS: SODIUM BICARBONATE 1075 MEQ IV (09:31)
[2023-12-14] MEDS: TAMIFLU 75 MG PO ×2 (09:31→19:50)
[2023-12-14] MEDS: VIBRAMYCIN 100 MG PO ×2 (09:31→19:50)
[2023-12-14] MEDS: TOPROL XL 50 MG PO (09:34)
--- NOTE | 2023-12-14 09:54 | W.PN.PUL.V3 ---
Today's Communication / Plan
-
.
Wean oxygen.
Overall improved.
Change Decadron to prednisone in the next 24 hours.
Continue antibiotics and Tamiflu
Assessment
-
78-year-old male with a history of asthma, hypertension who presented with dyspnea, coughing, wheezing fevers and chills and pulmonary was consulted for asthma exacerbation 12/13/2023.
Asthma-mild intermittent now with acute exacerbation
Pneumonia-multifocal community-acquired
Influenza-+12/09/23
Elevated liver functions
Elevated procalcitonin 1.49
Coabnf-kvbjzgugbn-sypawpbdlj 12.6
Leukopenia-WBC 2.9
Non-gap metabolic acidosis
Conditions present prior to admission:
Hypertension.
Hyperlipidemia.
Asthma-mild intermittent maintained on Breo 100 and albuterol as needed
AYO-maintained on oral appliance.
PAF.
Chronic amiodarone 200 mg daily
Cardiomyopathy.
Ventricular tachycardia.
Chronic kidney disease stage IIIa.
BPH.
Nephrolithiasis.
Gout.
History of DVT.
Cataract
TURP.
Defibrillator-2012 and 2020
Left knee arthroscopy 1980
Bilateral cataract surgery with lens implants
Plan
.
Once again, the patient's respiratory decompensation due to asthma exacerbation and underlying multifocal pneumonia and influenza
Supplemental oxygen-attempt to wean to room air prior to discharge
Mucolytic's
Decadron initiate-Change to prednisone tomorrow
Nebulizers-currently on albuterol and budesonide
Patient is on Breo 100 as an outpatient
Incentive spirometry
Flutter
Vest therapy if needed
Check cultures
Influenza a positive-12/09/23
Tamiflu
Empiric antibiotics-doxycycline and ceftriaxone initiated
Follow radiographically
Monitor leukopenia
Follow hemoglobin
Transfuse as needed
Follow-up liver functions
Non-gap metabolic acidosis noted-IV fluids per primary team
DVT prophylaxis-on Eliquis
Nutrition
Early mobilization
He was wearing an oral device and multiple sleep studies showed it was ineffective for his obstructive sleep apnea-he went to [place] to see a sleep specialist and obtained a CPAP machine that he was using and reportedly had a compliance check that
was appropriate. He has an tristan on his phone and reports and AHI usually less than 3.
Patient followed by pulmonary/sleep specialist as an outpatient-saw Aminta Hamlin NP 05/14/2023 and was to see patient again 05/15/2024-originally saw Dr. Rosalva Raymond 12/04/2022-will ask for 2 weeks follow-up after discharge
Diagnostic data:
Chest x-ray 12/09/2023-NAD
Chest x-ray 12/12/2023-multifocal pneumonia right middle lobe and right lower lobe
PSG 2011-AHI 14, desaturation katrina 83%
Split study with mandibular advancement device 08/2021-baseline AHI 29 and with device AHI 24 with desaturation katrina 88%
HST with dental device 12/2022-AHI-24 desaturation katrina 74%
HST with new oral device 04/2023-AHI-36, desaturation katrina 74%, 53 minutes spent less than 88% saturation
Subjective Data
-
Date of Service:
Date of Service: December 14, 2023
Chief Complaint: Pulmonary Follow Up and Dyspnea Follow Up
Subjective:
Feels better, short of breath, less wheezing, decreased cough, no chest pain or abdominal pain
Review of Systems
General: Other ( per HPI)
Objective Data
Data Reviewed
Vital Signs / I&O:
Vital Signs
Temp Pulse Resp BP Pulse Ox
97.8 F 75 14 127/64 96
12/14/23 07:00 12/14/23 09:34 12/14/23 07:18 12/14/23 09:34 12/14/23 07:18
Intake and Output
12/13/23 12/14/23 12/15/23
06:59 06:59 06:59
Intake Total 1919
Balance 1919
SaO2: 96
Physical Exam
General: Respiratory Distress (n) and Comfortable
HEENT: Normocephalic, Anicteric and Moist Mucous Membranes
Cardiovascular: Regular Rhythm
Respiratory: Wheeze ( few forced expiratory), Crackles (n), Rhonchi (n), Non-Labored Respirations, Accessory Resp Muscle Use (n) and Stridor (n)
GI: Soft, Non Distended and Non Tender
Neurology: Awake, Alert and No Motor Deficits
Skin: Warm, Good Color, Cyanosis (n), Jaundice (n) and Rash (n)
Labs/Micro/Reports
Lab Data
12/14/23 05:29
12/14/23 05:29
Microbiology
12/12/23 14:13 Sputum Respiratory Culture - Preliminary
12/12/23 14:13 Sputum Gram Stain - Preliminary
12/12/23 10:59 Blood/Venous Blood Culture - Preliminary
No Growth in 24 hours- Final report to follow
12/12/23 10:59 Blood/Venous Blood Culture - Preliminary
No Growth in 24 hours- Final report to follow
[2023-12-14] MEDS: NSS IV (10:27)
[2023-12-14 11:40] VITALS: BP 114/66
[2023-12-14] MEDS: ROCEPHIN 1000 MG IV (12:52)
[2023-12-14] MEDS: STERILE WATER FOR INJECTION 10 ML IV (12:53)
--- NOTE | 2023-12-14 13:54 | PN.CDI ---
CDI
- -
CDI:
Physician Documentation Request
Admit Date: 12/12/23 13:17
Dear Doctor Marta,
Patient admitted with sepsis.
WBC, RBC and platelet levels documented below:
Laboratory Tests
12/12/23 12/14/23
10:59 05:29
WBC 2.9 L 3.3 L
RBC 4.07 L 3.61 L
Plt Count 94 L 96 L
Based on the above, please clarify in the progress notes, the appropriate diagnosis, if significant, that supports the above abnormalities and additional evaluation, monitoring and/or treatment rendered:
Pancytopenia
Insignificant abnormal lab findings
Other
Use of terms such as suspected, likely, concern for, or probable (associated with a specific diagnosis that is being evaluated, monitored, or treated as if it exists) are acceptable and can be coded in the inpatient setting, when documented at the
time of discharge.
Thank you,
Maricarmen WEISS,RN,CCDS
CDI Specialist
Available via [place] text
Please use your independent medical judgment in providing your response.
[2023-12-14 15:14] VITALS: BP 132/76
--- NOTE | 2023-12-14 15:27 | CM ---
Weaning off O2, steroid adjustments. Discharge Plan of Care: Home with no needs.
[2023-12-14 19:10] VITALS: BP 134/74
[2023-12-14 23:26] VITALS: BP 144/71
[2023-12-15] MEDS: SODIUM BICARBONATE 1075 MEQ IV (00:27)
[2023-12-15] MEDS: DECADRON 4 MG IV ×2 (02:53→09:47)
[2023-12-15 03:28] VITALS: BP 128/68
[2023-12-15 06:00] VITALS: BMI 28.0
[2023-12-15 06:50] LABS: Hematocrit 35.1 % (39.0-52.0); Hemoglobin 12.4 g/dL (13.0-18.0); Mean Corp Hgb Conc. 35.3 g/dL (33.0-37.0); Mean Corpuscular Hgb 34.1 pg (27.0-31.0); Mean Corpuscular Volume 96.4 fL (80.0-94.0); Mean Platelet Volume 10.9 fL (7.4-10.4); Platelet Count 140 10^3/uL (130-400); Red Blood Cell Count 3.64 10^6/uL (4.70-6.10); Red Cell Dist. Width 13.5 % (11.5-14.5); White Blood Cell Count 6.9 10^3/uL (4.8-10.8)
[2023-12-15] MEDS: VENTOLIN NEBULES 2.5 MG INH ×4 (07:04→17:52)
[2023-12-15] MEDS: PULMICORT 0.5 MG INH ×2 (07:04→17:52)
[2023-12-15 07:15] LABS: ALT (SGPT) 207 U/L (0-50); AST (SGOT) 252 U/L (17-59); Albumin 2.9 g/dl (3.5-5.0); Alkaline Phosphatase 267 U/L (38-126); Blood Urea Nitrogen 24 mg/dl (9-20); Calcium 8.4 mg/dl (8.4-10.2); Carbon Dioxide 20 mmol/L (22-30); Chloride 110 mmol/L (98-107); Estimated Creatinine Clearance 70 ml/min; Glucose 127 mg/dl (70-99); Potassium 3.6 mmol/L (3.5-5.1); Sodium 138 mmol/L (135-145); Total Bilirubin 1.1 mg/dl (0.2-1.3); Total Protein 5.3 g/dl (6.3-8.2); eGFR > 60.00
[2023-12-15 07:25] VITALS: BP 134/74
--- NOTE | 2023-12-15 09:36 | W.PN.HOSP.TC ---
Today's Communication/Plan
-
see bold
Assessment / Plan
Assessment / Plan
Gen: NAD, AAOx3.
Eyes: EOMI, PERRLA, no scleral icterus.
Neck: supple.
CV: RRR, +S1/S2, no m/r/g.
Resp: minimal bilateral wheezes and rhonchi (similar to yesterday).
Abd: +BS, soft, NT, ND
Skin: No rashes.
Neuro: remains CN 2-12 intact, non-focal.
Psych: Normal mood and affect.
CXR:
1. Findings suggestive of multifocal pneumonia within the right middle and right lower lobes, new compared to recent prior chest x-ray.
2. No significant pleural effusion on either side.
Sepsis and acute asthma exacerbation due to acute R-sided multifocal PNA:
-recent influenza POS 12/09/23, was not given Tamiflu at that time
-procal 1.49
-cont with Rocephin/Doxy/Tamiflu/Decadron
-pulm following
-cont IVFs (NaHCO3 with non-AG met acidosis)
-elevated LFTs likely due to sepsis. Bilirubin now normal. Transaminases worsening. Check abd U/S.
-DEEPA, POA, due to sepsis, resolved with IVFs
Other problems:
Thrombocytopenia, likely due to infection
Paroxysmal Atrial Fibrillation: Cont Eliquis/Amio/BB
CKD3a
Hyperlipidemia: Holding statin due to elevated LFTs
BPH s/p TURP: Continue finasteride
Gout: Continue allopurinol
h/o Ventricular Tachycardia s/p Defibrillator
h/o DVT
FULL/Eliquis
Anticipated Discharge: Within 24 hours
Subjective/Interval History
-
Date of Service: December 15, 2023
No new complaints.
Objective Data
-
Labs:
Laboratory Results
12/15/23
05:46
WBC 6.9
Hgb 12.4 L
Hct 35.1 L
Plt Count 140 D
Sodium 138
Potassium 3.6
Chloride 110 H
Carbon Dioxide 20 L
BUN 24 H
Creatinine 0.9
Glucose 127 H
Calcium 8.4
Total Bilirubin 1.1
AST 252 H
ALT 207 H
Alkaline Phosphatase 267 H
Vital Signs:
Vital Signs
Temp Pulse Resp BP Pulse Ox
97.7 F 94 16 134/74 93
12/15/23 07:25 12/15/23 07:25 12/15/23 07:25 12/15/23 07:25 12/15/23 07:25
I&O
12/14/23 12/15/23 12/16/23
06:59 06:59 06:59
Intake Total 1760 / 1760 718 / 718
Balance 1760 / 1760 718 / 718
[2023-12-15] MEDS: TAMIFLU 75 MG PO ×2 (09:41→20:08)
[2023-12-15] MEDS: ZYLOPRIM 300 MG PO (09:41)
[2023-12-15] MEDS: ELIQUIS 5 MG PO ×2 (09:41→20:08)
[2023-12-15] MEDS: VISBIOME 1 CAP PO (09:41)
[2023-12-15] MEDS: JARDIANCE 10 MG PO (09:41)
[2023-12-15] MEDS: VIBRAMYCIN 100 MG PO ×2 (09:41→20:08)
[2023-12-15] MEDS: PACERONE 200 MG PO (09:42)
[2023-12-15] MEDS: TOPROL XL 50 MG PO (09:42)
[2023-12-15] MEDS: FLUSH (NSS) 2 FLUSH IV ×2 (09:47→12:35)
[2023-12-15 11:00] VITALS: BP 129/73
[2023-12-15] MEDS: ROCEPHIN 1000 MG IV (12:34)
[2023-12-15] MEDS: STERILE WATER FOR INJECTION 10 ML IV (12:34)
[2023-12-15 15:10] VITALS: BP 129/70
--- NOTE | 2023-12-15 15:42 | W.PN.PUL3 ---
Today's Communication / Plan
-
Transition to prednisone today
Tomorrow, transition to Augmentin and complete total 7 days of antibiotics.
Continue nebulizer therapy while in the hospital
Restart inhalers upon discharge
Assessment
-
78-year-old male with a history of asthma, hypertension who presented with dyspnea, coughing, wheezing fevers and chills and pulmonary was consulted for asthma exacerbation 12/13/2023.
Asthma-mild intermittent now with acute exacerbation
Pneumonia-multifocal community-acquired
Sputum culture with haemophilus influenza 12/12/2023
Influenza-+12/09/23
Elevated liver functions
Elevated procalcitonin 1.49
Xscrnu-xxihbnroze-hagcpporfm 12.6
Leukopenia-WBC 2.9
Non-gap metabolic acidosis
Conditions present prior to admission:
Hypertension.
Hyperlipidemia.
Asthma-mild intermittent maintained on Breo 100 and albuterol as needed
AYO-maintained on oral appliance.
PAF.
Chronic amiodarone 200 mg daily
Cardiomyopathy.
Ventricular tachycardia.
Chronic kidney disease stage IIIa.
BPH.
Nephrolithiasis.
Gout.
History of DVT.
Cataract
TURP.
Defibrillator-2012 and 2020
Left knee arthroscopy 1979
Bilateral cataract surgery with lens implants
Plan
.
Once again, the patient's respiratory decompensation due to asthma exacerbation and underlying multifocal pneumonia: Haemophilus influenza in the sputum/possible influenza A.
-
Asthma exacerbation improved.
Mucolytic's
Will transition to prednisone 40 mg and decrease by 10 mg every 72 hours to off.
Nebulizers-currently on albuterol and budesonide
Patient is on Breo 100 as an outpatient, can restart upon discharge
Incentive spirometry
Continue Acapella device
Leukopenia resolved
Afebrile
Haemophilus influenza + 12/11
Influenza a positive-12/09/23
Tamiflu complete 5 days.
Empiric antibiotics-doxycycline and ceftriaxone initiated-May transition to Augmentin tomorrow and complete total 7 days.
Will need radiographic follow-up in the next 4 to 6 weeks.
Non-gap metabolic acidosis noted-IV fluids per primary team
DVT prophylaxis-on Eliquis
Obstructive sleep apnea:
He was wearing an oral device and multiple sleep studies showed it was ineffective for his obstructive sleep apnea-he went to [place] to see a sleep specialist and obtained a CPAP machine that he was using and reportedly had a compliance check that
was appropriate. He has an tristan on his phone and reports and AHI usually less than 3.
Patient followed by pulmonary/sleep specialist as an outpatient-saw Aminta Hamlin NP 05/14/2023 and was to see patient again 05/15/2024-originally saw Dr. Rosalva Raymond 12/04/2022-will ask for 2 weeks follow-up after discharge
Diagnostic data:
Chest x-ray 12/09/2023-NAD
Chest x-ray 12/12/2023-multifocal pneumonia right middle lobe and right lower lobe
PSG 2011-AHI 14, desaturation katrina 83%
Split study with mandibular advancement device 08/2021-baseline AHI 29 and with device AHI 24 with desaturation katrina 88%
HST with dental device 12/2022-AHI-24 desaturation katrina 74%
HST with new oral device 04/2023-AHI-36, desaturation katrina 74%, 53 minutes spent less than 88% saturation
Subjective Data
-
Date of Service:
Date of Service: December 15, 2023
Chief Complaint: Pulmonary Follow Up and Dyspnea Follow Up
Subjective:
Patient states that he feels better.
The wheezing mostly has resolved
He has a residual cough
Denies shortness of breath ambulating around the room
Denies fevers or chills
Review of Systems
General: Fever (n)
Cardiopulmonary: Dyspnea (n)
GI: Abdominal Pain (n)
Objective Data
Data Reviewed
Vital Signs / I&O / Oxygen:
Vital Signs
Temp Pulse Resp BP Pulse Ox
97.7 F 61 16 129/70 94
12/15/23 15:10 12/15/23 15:10 12/15/23 15:10 12/15/23 15:10 12/15/23 15:10
Intake and Output
12/14/23 12/15/23 12/16/23
06:59 06:59 06:59
Intake Total 1760 / 1760 718 / 718
Balance 1760 / 1760 718 / 718
SaO2 94
Physical Exam
General: Respiratory Distress (n) and Comfortable
HEENT: Normocephalic, Anicteric and Moist Mucous Membranes
Cardiovascular: Regular Rhythm
Respiratory: Wheeze (Good air movement, minimal.), Crackles (n), Rhonchi (n), Non-Labored Respirations, Accessory Resp Muscle Use (n) and Stridor (n)
GI: Soft, Non Distended and Non Tender
Neurology: Awake, Alert and No Motor Deficits
Skin: Warm, Good Color, Cyanosis (n), Jaundice (n) and Rash (n)
Labs/Micro/Reports
Lab Data
12/15/23 05:46
12/15/23 05:46
Microbiology
12/12/23 10:59 Blood/Venous Blood Culture - Preliminary
No Growth in 72 hours- Final report to follow
12/12/23 10:59 Blood/Venous Blood Culture - Preliminary
No Growth in 72 hours- Final report to follow
12/12/23 14:13 Sputum Respiratory Culture - Final
Haemophilus influenzae
12/12/23 14:13 Sputum Gram Stain - Final
[2023-12-15 19:37] VITALS: BP 117/66
[2023-12-15] MEDS: ANESTHETIC LOZENGE 1 LOZENGE PO (20:15)
[2023-12-15] MEDS: ROBITUSSIN DM 10 ML PO (20:15)
[2023-12-15 23:05] VITALS: BP 135/77
[2023-12-16 04:00] VITALS: BP 130/72
[2023-12-16 04:10] VITALS: BP 130/72
[2023-12-16 06:00] VITALS: BMI 28.0
[2023-12-16 07:10] VITALS: BP 131/74
[2023-12-16] MEDS: VENTOLIN NEBULES 2.5 MG INH ×2 (07:18→11:40)
[2023-12-16] MEDS: PULMICORT 0.5 MG INH (07:18)
--- NOTE | 2023-12-16 07:46 | W.PN.HOSP.TC ---
Addendum entered and electronically signed by Mane Lozano MD 12/16/23 13:05:
Case discussed with Dr. Mota. Ok for d/c with repeat LFTs in 2-3 days.
Total time spent on d/c = 38 min. This included today's physical exam, progress note, review of laboratory and diagnostic data, preparation of discharge documents and prescriptions, and discussions about the pt's hospital course and discharge plan
with the patient and other medical transcription supervisor involved in the patient's care.
Original Note:
Today's Communication/Plan
-
see bold
Assessment / Plan
Assessment / Plan
Gen: NAD, AAOx3.
Eyes: EOMI, PERRLA, no scleral icterus.
Neck: supple.
CV: RRR, +S1/S2, no m/r/g.
Resp: minimal bilateral wheezes and rhonchi (similar to yesterday).
Abd: +BS, soft, NT, ND
Skin: No rashes.
Neuro: remains CN 2-12 intact, non-focal.
Psych: Normal mood and affect.
CXR:
1. Findings suggestive of multifocal pneumonia within the right middle and right lower lobes, new compared to recent prior chest x-ray.
2. No significant pleural effusion on either side.
Abd U/S: Limited visualization of the gallbladder with no definite gallstones identified. No sonographic findings to suggest acute cholecystitis. No evidence of biliary ductal dilation. The pancreas is not well-visualized. Left renal cysts.
Sepsis and acute asthma exacerbation due to acute R-sided multifocal PNA:
-recent influenza POS 12/09/23, was not given Tamiflu at that time
-procal 1.49
-cont with Rocephin/Doxy/Tamiflu/Prednisone
-pulm following
-s/p IVFs (NaHCO3 with non-AG met acidosis)
-elevated LFTs likely due to sepsis. Bilirubin now normal. Transaminases still elevated. c/s GI.
-DEEPA, POA, due to sepsis, resolved with IVFs
Other problems:
Thrombocytopenia, likely due to infection
Paroxysmal Atrial Fibrillation: Cont Eliquis/Amio/BB
CKD3a
Hyperlipidemia: Holding statin due to elevated LFTs
BPH s/p TURP: Continue finasteride
Gout: Continue allopurinol
h/o Ventricular Tachycardia s/p Defibrillator
h/o DVT
FULL/Eliquis
Anticipated Discharge: Within 24 hours
Subjective/Interval History
-
Date of Service: December 16, 2023
No new complaints.
Objective Data
-
Vital Signs:
Vital Signs
Temp Pulse Resp BP Pulse Ox
97.8 F 60 18 131/74 94
12/16/23 07:10 12/16/23 07:22 12/16/23 07:22 12/16/23 07:10 12/16/23 07:22
I&O
12/15/23 12/16/23 12/17/23
06:59 06:59 06:59
Intake Total 718 / 718 1570 / 1570
Balance 718 / 718 1570 / 1570
[2023-12-16 08:08] LABS: Hematocrit 37.6 % (39.0-52.0); Hemoglobin 13.1 g/dL (13.0-18.0); Mean Corp Hgb Conc. 34.8 g/dL (33.0-37.0); Mean Corpuscular Hgb 34.6 pg (27.0-31.0); Mean Corpuscular Volume 99.2 fL (80.0-94.0); Mean Platelet Volume 10.6 fL (7.4-10.4); Platelet Count 161 10^3/uL (130-400); Red Blood Cell Count 3.79 10^6/uL (4.70-6.10); Red Cell Dist. Width 13.6 % (11.5-14.5); White Blood Cell Count 6.9 10^3/uL (4.8-10.8)
[2023-12-16 08:29] LABS: ALT (SGPT) 241 U/L (0-50); AST (SGOT) 211 U/L (17-59); Albumin 3.3 g/dl (3.5-5.0); Alkaline Phosphatase 268 U/L (38-126); Blood Urea Nitrogen 30 mg/dl (9-20); Calcium 8.6 mg/dl (8.4-10.2); Carbon Dioxide 26 mmol/L (22-30); Chloride 108 mmol/L (98-107); Estimated Creatinine Clearance 63 ml/min; Glucose 100 mg/dl (70-99); Potassium 3.5 mmol/L (3.5-5.1); Sodium 140 mmol/L (135-145); Total Bilirubin 1.1 mg/dl (0.2-1.3); Total Protein 5.6 g/dl (6.3-8.2); eGFR > 60.00
[2023-12-16] MEDS: DELTASONE 40 MG PO (08:50)
[2023-12-16] MEDS: VISBIOME 1 CAP PO (08:50)
[2023-12-16] MEDS: JARDIANCE 10 MG PO (08:50)
[2023-12-16] MEDS: TAMIFLU 75 MG PO (08:50)
[2023-12-16] MEDS: PACERONE 200 MG PO (08:51)
[2023-12-16] MEDS: TOPROL XL 50 MG PO (08:51)
[2023-12-16] MEDS: ZYLOPRIM 300 MG PO (08:51)
[2023-12-16] MEDS: VIBRAMYCIN 100 MG PO (08:51)
[2023-12-16] MEDS: ELIQUIS 5 MG PO (08:51)
[2023-12-16] MEDS: ROBITUSSIN DM 10 ML PO (08:52)
--- NOTE | 2023-12-16 10:45 | CON.GI ---
Addendum entered and electronically signed by Gladis Mota MD 12/16/23 13:26:
resp exam some wheezing on left side
Original Note:
Consultation
-
Date/Time Consultation Requested: 12/16/2023, 10am
Date/Time Consultation Performed: 12/16/2023, 11am
Requesting Provider: Dr. Lozano
Performing Provider: Dr. Mota
Reason for Consultation: abnormal LFTs
Medical History
Chief Complaint / HPI
Chief Complaint: cough, fever
History of Present Illness:
78 yo M pmh asthma presented to ER 12/11 with dyspnea, cough, wheezing, fevers, chills since cruise a week prior. He went to ER 12/08 and tested + flu. Symptoms persisted/worsened and made him return to ER. Seen by pulm thought to have asthma
exacerbation, PNA, and flu leading to his symptoms. He is on antibiotics and steroids.
Per patient was admitted to [place] 10/19-10/22 I reviewed records had bacteremia with f/c/diarrhea thought cholecystitis. I do not have labs from that hospitalization but pt showed me US normal and CT with gallstones no acute tea, recommend to
consider HIDA if clinically applicable.
GI is being consulted for abnormal LFTs.
Trend: AST (12/11) 115 --> 83 --> 107 --> 252 --> 211 (12/15)
ALT (12/11) 109 --> 80 --> 93 --> 207 --> 241 (12/15)
TB normal now but 12/11 1.8 (12/12 1.5 then normalized) no direct checked
AP in 200s
I checked [facility] LFTs normal 11/13/2023; also normal during last ER visit on 12/08
Abd US 12/14 limited visualization of GB, no acute tea, no bile duct dilation, no fatty liver
Past Medical History
Past Medical History: Arrhythmias (a fib, VT), Asthma, CAD, HTN, Hypercholesterolemia, Renal Failure (CKD 3a) and Other (DVT, AYO, cardiomyopathy, BPH, gout, nephrolithiasis, DVT)
Past Surgical History: Other (TURP, defibrillator, knee arthsocopy, cataracts, lithotripsy)
Social History
Tobacco: Non-Smoker
Alcohol: Occasional
Drug: None
Allergies / Home Medications
Allergy/AdvReac Type Severity Reaction Status Date / Time
No Known Allergies Allergy Verified 02/02/22 12:51
�Medication �Instructions �Recorded
amiodarone 200 mg tablet (Pacerone) 200 mg PO DAILY Arrhythmia 01/10/22
ascorbic acid (vitamin C) 1,000 mg 1,000 mg PO DAILY Supplement 01/10/22
tablet (Vitamin C)
atorvastatin 20 mg tablet 20 mg PO DAILY High Cholesterol 01/10/22
cholecalciferol (vitamin D3) 10 400 units PO DAILY Supplement 01/10/22
mcg (400 unit) tablet (Vitamin D3)
metoprolol succinate 100 mg 50 mg PO DAILY Blood Pressure 01/10/22
tablet,extended release 24 hr
omega 5-smm-czb-fish oil 300 1 cap PO DAILY Supplement 01/10/22
mg-1,000 mg capsule (Fish Oil)
Lactobacillus rhamnosus GG 10 1 cap PO DAILY Supplement 12/12/23
billion cell capsule (Culturelle)
allopurinol 300 mg tablet 300 mg PO DAILY Gout 12/12/23
apixaban 5 mg tablet (Eliquis) 5 mg PO BID Blood Clot 12/12/23
Prevention/Tx
empagliflozin 10 mg tablet 10 mg PO DAILY Diabetes 12/12/23
(Jardiance)
fluticasone furoate 100 1 inh inhalation R DAILY 12/12/23
mcg-vilanterol 25 mcg/dose Lung/Breathing Issues
inhalation powder (Breo Ellipta)
glucosamine sulf dipot 1 cap PO DAILY Supplement 12/12/23
chlr,msm,chond 550 mg-C 30 mg-rudy
1 mg capsule (Glucosamine
Chondroitin)
therapeutic multivitamin 1 tab PO DAILY Supplement 12/12/23
turmeric 400 mg capsule 400 mg PO DAILY Supplement 12/12/23
vitamins A,C,U-nodl-ekwtat 2,148 1 tab PO DAILY Supplement 12/12/23
mcg-113 mg-45 mg-17.4 mg tablet
(PreserVision AREDS)
Review of Systems
-
All other systems: A 12 pt ROS was Negative except as stated above in HPI
Vital Signs
Temp Pulse Resp BP Pulse Ox
97.8 F 60 18 131/74 94
12/16/23 07:10 12/16/23 07:22 12/16/23 07:22 12/16/23 07:10 12/16/23 10:22
Physical Exam
Exam
General: Well Developed
HEENT: Normocephalic
Respiratory: Clear
Cardiac: Regular Rhythm
GI: Non Tender and Non Distended
Musculoskeletal: No Clubbing
Skin: Warm
Neuro: AO x 3
Psych: Calm
Results
WBC 6.9 10^3/uL (4.8-10.8) 12/16/23 08:01
Hgb 13.1 g/dL (13.0-18.0) 12/16/23 08:01
Hct 37.6 % (39.0-52.0) L 12/16/23 08:01
MCV 99.2 fL (80.0-94.0) H 12/16/23 08:01
Plt Count 161 10^3/uL (130-400) 12/16/23 08:01
Absolute Neuts (auto) 2.2 10^3/uL (1.4-6.5) 12/12/23 10:59
Sodium 140 mmol/L (135-145) 12/16/23 08:01
Potassium 3.5 mmol/L (3.5-5.1) 12/16/23 08:01
Chloride 108 mmol/L (98-107) H 12/16/23 08:
Carbon Dioxide 26 mmol/L (22-30) 12/16/23 08:
BUN 30 mg/dl (9-20) H 12/16/23 08:
Creatinine 1.0 mg/dL (0.7-1.3) 12/16/23 08:
Calcium 8.6 mg/dl (8.4-10.2) 12/16/23 08:
Total Bilirubin 1.1 mg/dl (0.2-1.3) 12/16/23 08:
AST 211 U/L (17-59) H 12/16/23 08:
ALT 241 U/L (0-50) H 12/16/23 08:
Alkaline Phosphatase 268 U/L (38-126) H 12/16/23 08:
Diagnostic Image Results:
Prior GI Procedures:
EGD:
Colonoscopy:
Assessment / Plan
-
78 yo M a/w flu, PNA, asthma exacerbation found to have elevated AST/ALT.
Seems to be acute in etiology. Perhaps related to flu/PNA. Antibiotics (on ceftriaxone and doxycycline) can cause abnormal LFTs but both started on 12/11 when LFTs started to go up. Case reports of Tamiflu causing abnormal LFTs as well.
Has questionable history of acute cholecystitis in early October but no RUQ pain, normal US this admission, normal bilirubin.
Completed course of Tamiflu and in regards to abx plan to transition to augmentin today per pulm notes.
Low suspicion will check hep serologies and iron studies for hemochromatosis.
Recommend repeat LFTs a few days after discharge with close follow up. If remains elevated outpatient will need complete liver work up +/- HIDA (perhaps when full records from [place] reviewed can determine if this is needed).
Has appt with Dr. Velasquez 01/13 (new patient).
Discussed with Dr. Lozano.
-
-
Thank you for consultation and allowing me to participate in the patient's care. Please call the mergers and acquisitions attorney GI physician during the after hours with any questions or concerns.
[2023-12-16] MEDS: ROCEPHIN 1000 MG IV (11:59)
[2023-12-16] MEDS: STERILE WATER FOR INJECTION 10 ML IV (11:59)
[2023-12-16] MEDS: FLUSH (NSS) 2 FLUSH IV (12:02)
--- NOTE | 2023-12-16 13:11 | W.DCSUMMARY ---
Discharge Summary
Discharge Data
Date of Admission: 12/12/23
Date of Discharge: 12/16/23
-
Pending Results: No
Hospital Course
Primary diagnoses:
Sepsis and acute asthma exacerbation due to acute right sided multifocal pneumonia
Acute kidney injury
Secondary diagnoses:
Thrombocytopenia
None anion gap metabolic acidosis
Transaminitis
Paroxysmal Atrial Fibrillation
Chronic kidney disease stage 3a
Hyperlipidemia
Benign prostatic hypertrophy s/p transurethral radical prostatectomy
Gout
h/o Ventricular Tachycardia s/p Defibrillator
h/o deep vein thrombosis
Consultants:
Gastroenterology
Pulmonary
Imaging:
CXR:
1. Findings suggestive of multifocal pneumonia within the right middle and right lower lobes, new compared to recent prior chest x-ray.
2. No significant pleural effusion on either side.
Abd U/S: Limited visualization of the gallbladder with no definite gallstones identified. No sonographic findings to suggest acute cholecystitis. No evidence of biliary ductal dilation. The pancreas is not well-visualized. Left renal cysts.
Hospital course: 78-year-old male presented with chief complaints of cough, shortness of breath, and fevers outlined in the H&P done on admission. Chest x-ray above. The patient had sepsis and acute asthma exacerbation due to acute right-sided
multifocal pneumonia. He had recently been influenza positive on 12/09/23 and was not given Tamiflu at that time. Procalcitonin was 1.49. Patient was treated with Rocephin, doxycycline, Tamiflu, and IV Decadron. He was transitioned to prednisone.
On discharge he will complete antibiotic therapy with doxycycline and Augmentin. He will complete his course of Tamiflu after discharge. He had a nonanion gap metabolic acidosis and acute kidney injury that resolved with IV fluids. He had
elevated LFTs that may have been due to sepsis. He was seen in consultation by gastroenterology and was recommended that he have a repeat liver function test in 2 to 3 days.
Discharge Plan
-
Patient Disposition: Home (Routine Discharge)
Discharge Diagnosis/Procedures: Sepsis due to pneumonia, acute asthma exacerbation
Condition: Good
Diet: Other diet
Additional Diets: Heart healthy
Activity: As tolerated
Driving Restrictions: As prior to admission
Bathing Restrictions: None
Blood Work: CMP and CBC in 2 to 3 days, prescription from PCP
Referrals:
Heriberto Breen MD [Family Provider] - in less than 1 week
Aminta Hamlin NP [Specified Professional Personl] - in one to two weeks
Dina Velasquez DO [Active] - 01/14/24 10:30 am (Please call to reschedule if you can not keep this appointment. If your insurance requires a referral please contact your primary care physician prior to your appointment. )
Prescriptions:
New
doxycycline hyclate 100 mg Capsule
100 mg PO Q12 Qty: 7 0RF
amoxicillin-pot clavulanate 875-125 mg tablet
1 tab PO BID Qty: 7 0RF
prednisone 10 mg tablet
10 mg PO DIRECTED Qty: 30 0RF
Rx Instructions:
Taper: 40mg daily x 3 days, 30mg daily x 3 days, 20mg daily x 3 days, 10mg daily x 3 days
oseltamivir [Tamiflu] 75 mg capsule
75 mg PO BID 5 Days Qty: 10 0RF
Rx Instructions:
last dose 12/17/23
Continued
ascorbic acid (vitamin C) [Vitamin C] 1,000 MG tablet
1,000 mg PO DAILY
amiodarone [Pacerone] 200 MG tablet
200 mg PO DAILY
metoprolol succinate 100 MG tablet extended release 24 hr
50 mg PO DAILY
cholecalciferol (vitamin D3) [Vitamin D3] 400 UNITS tablet
400 units PO DAILY
omega 5-rrl-yej-fish oil [Fish Oil] 1 EACH capsule
1 cap PO DAILY
therapeutic multivitamin Tablet
1 tab PO DAILY
allopurinol 300 mg Tablet
300 mg PO DAILY
Culturelle 10 billion cell Capsule
1 cap PO DAILY
PreserVision AREDS 2,148 mcg-113 mg-45 mg-17.4mg Tablet
1 tab PO DAILY
Eliquis 5 mg Tablet
5 mg PO BID
fluticasone furoate-vilanterol [Breo Ellipta] 100-25 mcg/dose Blister With Device
1 inh INHALATION R DAILY
Jardiance 10 mg Tablet
10 mg PO DAILY
turmeric 400 mg Capsule
400 mg PO DAILY
Glucosamine Chondroitin 550-30-1 mg Capsule
1 cap PO DAILY
Discontinued
atorvastatin 20 MG tablet
20 mg PO DAILY
Discharge Orders:
Discharge Patient (As Directed); Ordered 12/16/23
Ordered By: Mane Lozano
Discharge Date and Time
Print Language: MALAY
--- NOTE | 2023-12-16 13:14 | W.PN.PUL3 ---
Today's Communication / Plan
-
For discharge today
Sign off
Assessment
-
78-year-old male with a history of asthma, hypertension who presented with dyspnea, coughing, wheezing fevers and chills and pulmonary was consulted for asthma exacerbation 12/13/2023.
Asthma-mild intermittent now with acute exacerbation
Pneumonia-multifocal community-acquired
Sputum culture with haemophilus influenza 12/12/2023
Influenza-+12/09/23
Elevated liver functions
Elevated procalcitonin 1.49
Wrtvsy-dcdinsnqyg-qqvkpknyrk 12.6
Leukopenia-WBC 2.9
Non-gap metabolic acidosis
Conditions present prior to admission:
Hypertension.
Hyperlipidemia.
Asthma-mild intermittent maintained on Breo 100 and albuterol as needed
AYO-maintained on oral appliance.
PAF.
Chronic amiodarone 200 mg daily
Cardiomyopathy.
Ventricular tachycardia.
Chronic kidney disease stage IIIa.
BPH.
Nephrolithiasis.
Gout.
History of DVT.
Cataract
TURP.
Defibrillator-2012 and 2020
Left knee arthroscopy 1980
Bilateral cataract surgery with lens implants
Plan
.
Once again, the patient's respiratory decompensation due to asthma exacerbation and underlying multifocal pneumonia: Haemophilus influenza in the sputum/possible influenza A.
-
Improved from max exacerbation.
Okay to discharge from our perspective.
prednisone 40 mg and decrease by 10 mg every 72 hours to off.
Restart Breo 100 as an outpatient, can restart upon discharge
Leukopenia resolved
Afebrile
Haemophilus influenza + 12/11
Influenza a positive-12/09/23
Tamiflu complete 5 days.
Received ceftriaxone/doxycycline. Antibiotics per primary team..
Will need radiographic follow-up in the next 4 to 6 weeks.
Non-gap metabolic acidosis noted-IV fluids per primary team
DVT prophylaxis-on Eliquis
Obstructive sleep apnea:
He was wearing an oral device and multiple sleep studies showed it was ineffective for his obstructive sleep apnea-he went to [place] to see a sleep specialist and obtained a CPAP machine that he was using and reportedly had a compliance check that
was appropriate. He has an tristan on his phone and reports and AHI usually less than 3.
Patient followed by pulmonary/sleep specialist as an outpatient-saw Aminta Hamlin NP 05/14/2023 and was to see patient again 05/15/2024-originally saw Dr. Rosalva Raymond 12/04/2022-will ask for 2 weeks follow-up after discharge
Discharge planning.
Diagnostic data:
Chest x-ray 12/09/2023-NAD
Chest x-ray 12/12/2023-multifocal pneumonia right middle lobe and right lower lobe
PSG 2011-AHI 14, desaturation katrina 83%
Split study with mandibular advancement device 08/2021-baseline AHI 29 and with device AHI 24 with desaturation katrina 88%
HST with dental device 12/2022-AHI-24 desaturation katrina 74%
HST with new oral device 04/2023-AHI-36, desaturation katrina 74%, 53 minutes spent less than 88% saturation
Subjective Data
-
Date of Service:
Date of Service: December 16, 2023
Chief Complaint: Pulmonary Follow Up and Dyspnea Follow Up
Subjective:
Clinically improved
For discharge today
Objective Data
Data Reviewed
Vital Signs / I&O / Oxygen:
Vital Signs
Temp Pulse Resp BP Pulse Ox
97.8 F 60 18 131/74 94
12/16/23 07:10 12/16/23 07:22 12/16/23 07:22 12/16/23 07:10 12/16/23 10:22
Intake and Output
12/15/23 12/16/23 12/17/23
06:59 06:59 06:59
Intake Total 718 / 718 1570 / 1570
Balance 718 / 718 1570 / 1570
SaO2 94
Physical Exam
General: Respiratory Distress (n), Comfortable and Other (Able to speak in full sentences)
HEENT: Normocephalic, Anicteric and Moist Mucous Membranes
Cardiovascular: Regular Rhythm
Respiratory: Wheeze (None), Crackles (n), Rhonchi (n), Non-Labored Respirations, Accessory Resp Muscle Use (n), Stridor (n) and Other (Good air movement)
GI: Soft, Non Distended and Non Tender
Neurology: Awake, Alert and No Motor Deficits
Skin: Warm, Good Color, Cyanosis (n), Jaundice (n) and Rash (n)
Labs/Micro/Reports
Lab Data
12/16/23 08:01
12/16/23 08:01
Microbiology
12/12/23 10:59 Blood/Venous Blood Culture - Preliminary
No Growth in 4 days- Final report to follow
12/12/23 10:59 Blood/Venous Blood Culture - Preliminary
No Growth in 4 days- Final report to follow
12/12/23 14:13 Sputum Respiratory Culture - Final
Haemophilus influenzae
12/12/23 14:13 Sputum Gram Stain - Final
[2023-12-17 18:53] LABS: Hepatitis B Surface Antigen Negative (Negative)
[2023-12-17 19:01] LABS: Hepatitis A IgM Antibody Negative (Negative); Hepatitis B Core Ab, IgM Negative (Negative)
[2023-12-17 19:09] LABS: Hepatitis B Core Ab, Total Negative (Negative); Hepatitis B Surface Antibody Negative; Hepatitis C Antibody Negative (Negative)
[2023-12-17 19:19] LABS: Hepatitis A Antibody, Total Positive (Negative)
== END 2023-12-16 13:58 | disposition home or self-care (01) | DRG 871 ==
LOC: 2 NORTH 13:17
PROVIDERS: Physician Assistant Medical; ADMITTING PHYSICIAN Internal Medicine; CONSULT PHYSICIAN Internal Medicine Critical Care Medicine; EMERGENCY PHYSICIAN Emergency Medicine; FAMILY PHYSICIAN Family Medicine; OTHER PHYSICIAN Internal Medicine Gastroenterology
DX: A41.89 Other specified sepsis (principal); J10.08 Influenza due to other identified influenza virus with other specified pneumonia; J14 Pneumonia due to Hemophilus influenzae; N17.9 Acute kidney failure, unspecified; J45.901 Unspecified asthma with (acute) exacerbation; I42.9 Cardiomyopathy, unspecified; E87.20 Acidosis, unspecified; N40.0 Benign prostatic hyperplasia without lower urinary tract symptoms; E78.00 Pure hypercholesterolemia, unspecified; D69.6 Thrombocytopenia, unspecified; D72.819 Decreased white blood cell count, unspecified; I12.9 Hypertensive chronic kidney disease with stage 1 through stage 4 chronic kidney disease, or unspecified chronic kidney disease; E11.22 Type 2 diabetes mellitus with diabetic chronic kidney disease; G47.33 Obstructive sleep apnea (adult) (pediatric); M10.9 Gout, unspecified; D64.9 Anemia, unspecified; I48.0 Paroxysmal atrial fibrillation; N18.31 Chronic kidney disease, stage 3a; Z87.442 Personal history of urinary calculi; Z95.810 Presence of automatic (implantable) cardiac defibrillator; Z79.01 Long term (current) use of anticoagulants; Z86.718 Personal history of other venous thrombosis and embolism; Z79.51 Long term (current) use of inhaled steroids; Z90.79 Acquired absence of other genital organ(s)
CPT/HCPCS: 71046; 76700; 80048; 80053; 82962; 83605; 83735; 84145; 85025; 85027; 85610; 85730; 86704; 86705; 86706; 86708; 86709; 86803; 86850; 86900; 86901; 87040; 87070; 87077; 87185; 87205; 87340; 87502; 87811; 94640; 96365; 96375; 99283; 99285; J7030

== ENCOUNTER → 2024-01-31 06:16 | Day surgery (SDC) | payer MEDICARE, BC, OTHER, SELFPAY | LOC: GI 06:16 | PROVIDERS: ATTENDING PHYSICIAN Internal Medicine | DX: Z12.11 Encounter for screening for malignant neoplasm of colon (principal); Z53.8 Procedure and treatment not carried out for other reasons | CPT/HCPCS: G0121 ==

== ENCOUNTER → 2024-01-31 09:37 | Outpatient (REF) | payer MEDICARE, BC, OTHER, SELFPAY | LOC: RAD 09:37 | PROVIDERS: ATTENDING PHYSICIAN Nurse Practitioner Adult Health; FAMILY PHYSICIAN Family Medicine | DX: J14 Pneumonia due to Hemophilus influenzae (principal) | CPT/HCPCS: 71046 ==

== ENCOUNTER → 2024-02-01 06:00 | Day surgery (SDC) | payer MEDICARE, BC, OTHER, SELFPAY | LOC: GI 06:00 | PROVIDERS: ATTENDING PHYSICIAN Internal Medicine Gastroenterology | DX: Z12.11 Encounter for screening for malignant neoplasm of colon (principal); D12.0 Benign neoplasm of cecum; K57.30 Diverticulosis of large intestine without perforation or abscess without bleeding; K64.8 Other hemorrhoids | CPT/HCPCS: 45385; 88305 ==

== ENCOUNTER 2024-03-18 16:49 | Emergency (ER) | payer MEDICARE, BC, OTHER, SELFPAY ==
[2024-03-18 16:57] VITALS: BP 133/80
--- NOTE | 2024-03-18 18:10 | ED.GENMED ---
History of Present Illness
General
Chief Complaint: Fever
Source: patient
Exam Limitations: none
Time Seen by Provider: 03/18/24 17:57
History of Present Illness
History of Present Illness:
This is a 78 year old male that comes in with c/o shaking chills. States that 2 hours go he started with chills. States that he was in the living room and it was 73 degree's in there. States that this happened in October when he was in [place] and he
had sepsis. State that it was infection in his blood. States that he was on IV for a week. States that they were unsure what caused this. States that he is feeling nauseated. States that he is also having trouble with what he believes is Gout of
the right knee. States that the knee is red and swollen. Denies any fever, chest pain, SOB, abd pain, vomiting, diarrhea, headache, dizziness, urinary burning
Past History
Past History
ED Past Medical History: Arrthythmia (Atrial fib), Asthma, Hypercholesterolemia, MD, Other (Back pain, Sleep apnea, Renal calculus, Urinary retention) and Other (Kidney stone in 2010, chronic renal insufficiency, arrhythmia with AICD implant,)
ED Past Surgical History: Cardiac (pacer/def), Orthopedic (Left knee surgery) and Other (Bry cataracts, Macular degeneration, )
Social History
Tobacco: Non-smoker
Alcohol: Daily (Vodka, Gin, or scotch 1 glass of one of these)
Personal: (Has significant other)
Living: with family
Family History
Family History: CAD
Review of Systems
Review of Systems
All Other Systems: ROS reviewed and negative except as documented in HPI and ROS
Constitutional: Reports chills; Denies fever
EENT: Reports no symptoms
Respiratory: Reports no symptoms; Denies cough or trouble breathing
Cardiac: Reports no symptoms; Denies chest pain
ABD/GI: Reports nausea; Denies abdominal pain, vomiting or diarrhea
: Reports no symptoms; Denies dysuria, frequency or urgency
Musculoskeletal: Reports joint swelling (Right knee, )
Skin: Reports other (Redness right knee)
Neurological: Reports no symptoms; Denies dizzy or headache
Psychiatric: Reports no symptoms
Phy Exam
General Physical Exam
General Presentation: no apparent distress
General age: appears stated age
General Skin: warm, dry and flushed
General Habitus: normal
ENT Exam
ENT Exam: TM's normal, pharynx normal and neck supple
Eye Exam
Eye Exam: EOMI
Cardiovascular Exam
Cardiovascular Exam: regular rate/rhythm and normal peripheral pulses
Pulmonary Exam
Pulmonary Exam: lungs clear, no respiratory distress, no rales, chest non tender, no crackles, no rhonchi, no wheezing and no cough
Gastrointestinal Exam
Gastrointestinal Exam: normal bowel sounds, non tender, soft, no organomegaly, no pulsatile mass and non distended
Musculoskeletal Exam
Musculoskeletal Exam: full ROM and no edema
Skin Exam
Skin Exam: normal color, warm/dry, no petechia and redness (Of the right knee with increased warmth . Slight swelling (patient feels this is his gout))
Psychiatric Exam
Psychiatric Exam: normal mood/affect
Course
Orders/Labs/Results
Orders:
Orders
03/18/24 18:10
CR Chest - 2 Views Urgent
Comment:
Reason For Exam: chills
03/18/24 18:24
Complete Blood Count/With Diff Urgent
Comprehensive Metabolic Panel Urgent
Lactic Acid Urgent
Lipase Urgent
Urinalysis Reflex To Culture Urgent
Date Specimen was Collected: 03/18/24
Time Specimen was Collected: 16:58
Blood Culture Urgent
PAMELA Source: Blood/Venous
Specimen Description:
Comment: 2 please
03/18/24 19:53
Cephalexin Monohydrate [Keflex] 500 mg PO NOW STA
Abnormal Lab Results
03/18/24
18:24
RBC 3.91 L 10^6/uL
(4.70-6.10)
Hct 38.8 L %
(39.0-52.0)
MCV 99.2 H fL
(80.0-94.0)
MCH 34.5 H pg
(27.0-31.0)
MPV 10.8 H fL
(7.4-10.4)
Absolute Lymphs (auto) 1.0 L 10^3/uL
(1.2-3.4)
Absolute Monos (auto) 0.8 H 10^3/uL
(0.1-0.6)
Lymphocytes % 14.0 L %
(20.5-51.1)
Monocytes % 11.8 H %
(1.7-9.3)
BUN 21 H mg/dl
(9-20)
Creatinine 1.4 H mg/dL
(0.7-1.3)
Total Protein 6.2 L g/dl
(6.3-8.2)
Urine Glucose 3+ A
(Negative)
03/18/24 18:24
03/18/24 18:24
Dehydration. total protein slightly low. Urine negative for infection. Lactic acid normal at 0.9
Vital Signs
Initial and Last Documented VS:
Initial Vital Signs
Temp Pulse Resp BP Pulse Ox
98.9 F 60 18 133/80 98
03/18/24 16:57 03/18/24 16:57 03/18/24 16:57 03/18/24 16:57 03/18/24 16:57
Last Documented Vital Signs
Temp Pulse Resp BP Pulse Ox
98.5 F 60 12 115/72 96
03/18/24 18:20 03/18/24 20:00 03/18/24 20:00 03/18/24 20:00 03/18/24 20:00
MDM/Problems Addressed
Differential Diagnosis Includes:
Viral syndrome. Cellulitis,
MDM/Problems Addressed:
This is a 78 year old male that comes in with c/o chills. States that this happened to him in October and he was septic. State that he was on IV antibiotics for a week. States that he is also slightly nauseated.
Will check labs, Urine, chest X-ray.
back into see patient. Explained that his blood work shows slight anemia and dehydration. WBC and lactic acid are normal. Blood cultures have been sent. Explained to patient that this may be a Cellulitis of the right knee that is causing his chills.
Patient was offered admission but he wants to go home. Will start on Antibiotics. Explained that if his blood cultures would come back positive he will be called and asked to come back. Patient to return with fever, chills, or any other concerns .
Chronic conditions affecting care:
History of Sepsis,
Acute Exacerbation and/or Progression of Chronic Illness:
NA
*Radiology
Radiology exam reviewed: preliminary read by ED provider (Chest- Pacemaker noted. No acute disease of the chest. )
*Pulse Oximetry
Patient hypoxic: no
*EKG
Interpreted by ED Provider?: NA
Rate: EKG- N/A
*Shellfish Weigher Interpretation
Rate: normal
Heart Rate: 6
Rhythm: ventricular paced
*Critical Care Note
Total Time (30-74mins, 75-104mins- exclusive of procedures): Not Applicable
ED Attending Note
-
Portions of this chart may have been created with voice recognition software.� Occasional wrong word or��sound alike� substitutions may have occurred due to the inherent limitations of voice recognition software.
Discharge Plan
Departure
Patient Disposition: Home (Routine Discharge)
Date of Disposition: 03/18/24
Time of Disposition: 19:54
Patient with high blood pressure during this ER visit?: No
Condition: Good
Covid-19: Not Applicable
Discharge Problem:
Cellulitis of knee, right
Instructions: Cellulitis (Skin Infection), Adult ED
Prescriptions:
New
cephalexin 500 mg capsule
500 mg PO QID 10 Days Qty: 39 0RF
No Action
ascorbic acid (vitamin C) [Vitamin C] 1,000 MG tablet
1,000 mg PO DAILY
amiodarone [Pacerone] 200 MG tablet
200 mg PO DAILY
metoprolol succinate 100 MG tablet extended release 24 hr
50 mg PO DAILY
cholecalciferol (vitamin D3) [Vitamin D3] 400 UNITS tablet
400 units PO DAILY
omega 1-esc-cga-fish oil [Fish Oil] 1 EACH capsule
1 cap PO DAILY
therapeutic multivitamin Tablet
1 tab PO DAILY
allopurinol 300 mg Tablet
300 mg PO DAILY
Culturelle 10 billion cell Capsule
1 cap PO DAILY
PreserVision AREDS 2,148 mcg-113 mg-45 mg-17.4mg Tablet
1 tab PO DAILY
Eliquis 5 mg Tablet
5 mg PO BID
fluticasone furoate-vilanterol [Breo Ellipta] 100-25 mcg/dose Blister With Device
1 inh INHALATION R DAILY
Jardiance 10 mg Tablet
10 mg PO DAILY
turmeric 400 mg Capsule
400 mg PO DAILY
Glucosamine Chondroitin 550-30-1 mg Capsule
1 cap PO DAILY
doxycycline hyclate 100 mg Capsule
100 mg PO Q12 Qty: 7 0RF
amoxicillin-pot clavulanate 875-125 mg tablet
1 tab PO BID Qty: 7 0RF
prednisone 10 mg tablet
10 mg PO DIRECTED Qty: 30 0RF
Rx Instructions:
Taper: 40mg daily x 3 days, 30mg daily x 3 days, 20mg daily x 3 days, 10mg daily x 3 days
oseltamivir [Tamiflu] 75 mg capsule
75 mg PO BID 5 Days Qty: 10 0RF
Rx Instructions:
last dose 12/17/23AM
Referrals:
NONE,* [Active] -
Activity Restrictions/Additional Instructions:
As discussed, your blood work shows very slight anemia and slight Dehydration. Your urine is negative for infection and your lactic acid is normal. Chest x-ray is normal. This redness may be due to your Gout but this could be a cellulitis that is
causing your chills. You have been given your first dose of antibiotic here and a prescription has been sent to your Pharmacy. Please follow up with the family doctor. IF YOU HAVE FEVER, FURTHER CHILLS, OR YOU HAVE ANY OTHER CONCERNS PLEASE RETURN
TO THE EMERGENCY ROOM.
Interventions
Interventions:
*Risk Screen - Suicide Last Done: 03/18/24 18:20
*General Assessment Last Done: 03/18/24 18:20
*Neglect/Abuse Screening Last Done: 03/18/24 18:20
ED- Fall Risk Assessment Last Done: 03/18/24 18:20
*ED COVID-19 Vaccine History Last Done: 03/18/24 18:20
*Nursing Disposition Last Done: 03/18/24 20:15
ED- Neurological Assessment Last Done: 03/18/24 18:20
ED-Skin Assessment Last Done: 03/18/24 18:20
Discharge Date and Time
Discharge Date/Time: 03/18/24 20:18
Print Language: JAPANESE
[2024-03-18 18:20] VITALS: BP 142/69; BMI 27.2
[2024-03-18 18:21] VITALS: BP 124/75
[2024-03-18 18:28] VITALS: BP 142/69
[2024-03-18 18:37] LABS: % Basophils 0.7 % (0-2); % Eosinophils 1.8 % (0-6); % Immature Granulocytes 0.4 % (0-0.5); % Monocytes 11.8 % (1.7-9.3); % Neutrophils 71.3 % (42.2-75.2); Absolute Basophils 0.1 10^3/uL (0-0.2); Absolute Eosinophils 0.1 10^3/uL (0-0.7); Absolute Monocytes 0.8 10^3/uL (0.1-0.6); Absolute Neutrophils 5.1 10^3/uL (1.4-6.5); Hematocrit 38.8 % (39.0-52.0); Hemoglobin 13.5 g/dL (13.0-18.0); Mean Corp Hgb Conc. 34.8 g/dL (33.0-37.0); Mean Corpuscular Hgb 34.5 pg (27.0-31.0); Mean Corpuscular Volume 99.2 fL (80.0-94.0); Mean Platelet Volume 10.8 fL (7.4-10.4); Nucleated Red Blood Cells % 0 % (-); Platelet Count 135 10^3/uL (130-400); Red Blood Cell Count 3.91 10^6/uL (4.70-6.10); Red Cell Dist. Width 13.2 % (11.5-14.5); White Blood Cell Count 7.1 10^3/uL (4.8-10.8)
[2024-03-18 18:44] LABS: Urine Albumin Negative (Neg - Trace); Urine Bilirubin Negative (Negative); Urine Character Clear (Clear); Urine Color Yellow; Urine Glucose 3+ (Negative); Urine Ketone Negative (Negative); Urine Leukocyte Negative (Negative); Urine Nitrite Negative (Negative); Urine Occult Blood Negative (Negative); Urine Urobilinogen Negative (Neg - 1+); Urine pH 6.5 (5.0-9.0)
[2024-03-18 18:46] LABS: Lactic Acid 0.9 mmol/L (0.7-2.0)
[2024-03-18 18:49] LABS: ALT (SGPT) 18 U/L (0-50); AST (SGOT) 30 U/L (17-59); Albumin 4.3 g/dl (3.5-5.0); Alkaline Phosphatase 86 U/L (38-126); Blood Urea Nitrogen 21 mg/dl (9-20); Calcium 9.6 mg/dl (8.4-10.2); Carbon Dioxide 25 mmol/L (22-30); Chloride 105 mmol/L (98-107); Estimated Creatinine Clearance 43 ml/min; Glucose 91 mg/dl (70-99); Lipase 81 U/L (23-300); Potassium 4.9 mmol/L (3.5-5.1); Sodium 140 mmol/L (135-145); Total Bilirubin 1.2 mg/dl (0.2-1.3); Total Protein 6.2 g/dl (6.3-8.2); eGFR 52.09
[2024-03-18 19:01] VITALS: BP 128/84
[2024-03-18 20:00] VITALS: BP 115/72
[2024-03-18] MEDS: KEFLEX 500 MG PO (20:06)
== END 2024-03-18 20:18 | disposition home or self-care (01) ==
LOC: EMR 16:49
PROVIDERS: Clinical Nurse Specialist Family Health; Emergency Medicine; EMERGENCY PHYSICIAN Emergency Medicine; FAMILY PHYSICIAN Family Medicine
DX: L03.115 Cellulitis of right lower limb (principal); R11.0 Nausea; R68.83 Chills (without fever); D64.9 Anemia, unspecified; E86.0 Dehydration; J45.909 Unspecified asthma, uncomplicated; E78.00 Pure hypercholesterolemia, unspecified; I48.91 Unspecified atrial fibrillation; G47.30 Sleep apnea, unspecified; H35.30 Unspecified macular degeneration; N18.9 Chronic kidney disease, unspecified; I25.2 Old myocardial infarction; Z87.442 Personal history of urinary calculi; Z95.810 Presence of automatic (implantable) cardiac defibrillator; Z79.01 Long term (current) use of anticoagulants
CPT/HCPCS: 99283; 71046; 80053; 81003; 83605; 83690; 85025; 87040

== ENCOUNTER → 2024-04-11 12:19 | Outpatient (REF) | payer MEDICARE, BC, OTHER, SELFPAY | LOC: RAD 12:19 | PROVIDERS: ATTENDING PHYSICIAN Internal Medicine Rheumatology; FAMILY PHYSICIAN Family Medicine | DX: M1A.9XX1 Chronic gout, unspecified, with tophus (tophi) (principal); M25.462 Effusion, left knee | CPT/HCPCS: 73562; 73565 ==

== ENCOUNTER 2025-01-08 06:34 | Day surgery (SDC) | payer MEDICARE, BC, OTHER, SELFPAY | END 2025-01-08 09:16 | disposition home or self-care (01) | LOC: GI 06:34 | PROVIDERS: ATTENDING PHYSICIAN Internal Medicine | DX: Z12.11 Encounter for screening for malignant neoplasm of colon (principal); K57.30 Diverticulosis of large intestine without perforation or abscess without bleeding; K55.20 Angiodysplasia of colon without hemorrhage; K64.8 Other hemorrhoids; D12.2 Benign neoplasm of ascending colon; D12.0 Benign neoplasm of cecum; D12.3 Benign neoplasm of transverse colon; D12.4 Benign neoplasm of descending colon; D12.8 Benign neoplasm of rectum; Z86.0101 Personal history of adenomatous and serrated colon polyps | CPT/HCPCS: 45385; 45380; 88305 ==

== ENCOUNTER → 2025-02-16 10:56 | Outpatient (REF) | payer MEDICARE, BC, OTHER, SELFPAY | LOC: RAD 10:56 | PROVIDERS: ATTENDING PHYSICIAN Family Medicine; FAMILY PHYSICIAN Family Medicine | DX: R05.9 Cough, unspecified (principal) | CPT/HCPCS: 71046 ==